=== PATIENT | male | born 1940 | race Caucasian/White ===

== ENCOUNTER 2016-11-25 16:43 | Emergency (ER) | payer MEDICARE, OTHER ==
[~2016-11-25] VITALS: Ht 182.9 cm; Wt 68.0 kg
[~2016-11-25 16:43] MED LIST: AMOX1TAB16 PO; ASPI325T PO; ATOR40TA64 PO; BISA10SU61 RECTALLY; CARB1TAB20 PO; CYAN250010 PO; DULO30CA52 PO; FURO-154 PO; HYDR-347 PO; INSU100V SQ; INSU200I4 SQ; IPRA3AMP AEROSOL; LEVO50TA11 PO; MAGN400O4 PO; OMEP20CA10 PO; POLY119P3 PO
[2016-11-25 16:44] VITALS: Ht 182.9 cm; Wt 68.0 kg
--- OUTSIDE RECORDS SUMMARY | 2016-11-25 16:48 | XMS REPORT | Continuity of Care Document ---
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 Equipment Service Lead Name Role Phone [employer] Unavailable Unavailable Problems Problem Status Onset Date Classification Date Reported Comments Source Chronic ischemic heart disease, unspecified 01/28/2015 Diagnosis 02/01/2015 [facility] Chest pain (finding) Active Problem 03/24/2015 [facility], [facility] Atherosclerosis of coronary artery (disorder) Active Problem 03/24/2015 [facility], [facility] Medications Medication Details Route Status Patient Instructions Ordering Provider Order Date Source No Known Medications No known medications Active [facility] Allergies, Adverse Reactions, Alerts Substance Category Reaction Severity Reaction type Status Date Reported Comments Source Primidone Assertion made patient "spacey" & depressed Propensity to adverse reactions to drug [facility], [facility]. topiramate Assertion "spacey " & depressed Propensity to adverse reactions to drug [facility], [facility]. Immunizations Immunization Date Given Site Status Last Updated Comments Source No data available for this section No data available for this section [facility], [facility]. Results Vital Signs Encounters Location Location Details Encounter Type Encounter Number Reason For Visit Attending Provider ADM Date DC Date Status Source [facility] [id number] Inpatient [id number] Eduardo Freedman 01/26/2015 01/28/2015 Active [facility] Cancel/ No Show [id number] . [facility] 01/28/2015 01/27/2015 [facility] [id number] Arnoldo Almonteel 04/01/2015 [facility] Procedures Procedure Code Date Perfomer Comments Source LV cors c PTCA 01/27/2015 [facility] No data available for this section [facility] bilat cataracts [facility] [facility], [employer]. microdiscectomy<sup>1</sup> 2012 [facility]. prostate scraping<sup>2</sup> 2012 [facility]. vasectomy [facility]. vitrectomy-eye surgery-left [facility]. Plan of Care Social History Assessment and Plan Family History Value Date Source Advance Directives Order Name Results Value Date Source
--- OUTSIDE RECORDS SUMMARY | 2016-11-25 16:48 | XMS REPORT | Continuity of Care Document ---
Author Author [facility] Organization [facility] Address Unknown Phone Unavailable Care Team Providers Care Ip Counsel Name Role Phone Sherif Sharpe Primary Care Physician [phone] Source Comments Some departments are not documenting in the electronic medical record. If you do not see the information that you expected, contact Release of Information in the Health Information Management department at [phone] for further assistance in locating additional records.[facility] Active Allergies and Adverse Reactions Allergen Noted Date Severity Reactions Comments Bactrim 10/22/2015 Low SEE COMMENTS Potassium levels went to (8.4) Primidone 10/22/2015 Medium MENTAL STATUS CHANGES Sulfa (Sulfonamide 10/22/2015 Low UNKNOWN Antibiotics) Topiramate 10/22/2015 Medium MENTAL STATUS CHANGES Current Medications Prescription Sig. Disp. Refills Start End Date Status Date aspirin EC 81 mg tablet Take 81 mg by mouth Active daily. atorvastatin (LIPITOR) 40 Take 40 mg by mouth at Active mg tablet bedtime daily. carbidopa/levodopa Take 1.5 Tabs by mouth Active (SINEMET) 25/100 mg four times daily. Takes 2 tablet tabs three times a day levothyroxine (SYNTHROID) Take 50 mcg by mouth Active 50 mcg tablet daily 30 minutes before breakfast. omeprazole DR(+) Take 20 mg by mouth Active (PRILOSEC) 20 mg capsule daily. INSULIN Inject 35 Units into Active GLARGINE,HUM.REC.ANLOG area(s) as directed at (LANTUS SC) bedtime daily. docusate (COLACE) 100 mg Take 100 mg by mouth Active capsule daily. CALCIUM POLYCARBOPHIL Take 1 Tab by mouth Active (FIBERCON PO) daily. ASCORBATE CALCIUM Take 500 mg by mouth Active (VITAMIN C PO) daily. cholecalciferol(+) Take 2,000 Units by mouth Active (VITAMIN D3) 2,000 unit daily. tablet clobetasol (TEMOVATE) Apply to affected area Active 0.05 % topical cream as Needed (psoriasis). Melatonin 5 mg cap Take 1-2 Caps by mouth at Active bedtime as needed. Cyanocobalamin 2,[address] 1 Tab under tongue Active subl four times weekly. fludrocortisone Take 0.1 mg by mouth Active (FLORINEF) 0.1 mg tablet every morning. Alpha Lipoic Acid 600 mg Take 1 Cap by mouth Active cap daily. VITAMIN B COMPLEX Take 1 Tab by mouth Active (BALANCED B-50 PO) daily. levocarnitine(+) 500 mg Take 1 Tab by mouth Active tablet daily. POMEGRANATE XT/POMEGRANAT Take 1 oz by mouth daily. Active SEED (POMEGRANATE PO) other medication Take 1 Dose by mouth Active daily. 1oz of 85% Dark Chocolate DULoxetine DR (CYMBALTA) Take 1 Cap by mouth twice 60 Cap 11 11/16/19 Active 30 mg capsule daily. Indications: 16 CHRONIC MUSCULOSKELETAL PAIN DOCOSAHEXANOIC ACID/EPA Take 1,200 mg by mouth Active (FISH OIL PO) daily. polyethylene glycol 3350 Take 17 g by mouth daily Active (GLYCOLAX; MIRALAX) 17 as needed. 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 Sepsis due to urinary tract infection (HCC) 01/25/2016 DM (diabetes mellitus) (HCC) 01/25/2016 Fall 01/25/2016 Parkinsonism (HCC) 11/16/2015 Peripheral neuropathy ([facility]) 11/16/2015 Orthostatic hypotension 11/16/2015 Most Recent Encounters Date Type Specialty Providers Description 11/23/2016 Telephone Neurology Yan Aceves MD Other - "zoning" 10/20/2016 Telephone Neurology Christian Hernandes MD Fall 10/05/2016 Telephone Neurology Yan Aceves MD Fall 09/20/2016 Telephone Neurology Yan Aceves MD Falls 08/31/2016 Telephone Neurology Yan Aceves MD Follow-up Phone Call 08/29/2016 Office Visit Neurology Yan Aceves MD Parkinsonism, unspecified Parkinsonism type (HCC) (Primary Dx); Peripheral polyneuropathy (HCC); Orthostatic hypotension; Constipation, unspecified constipation type Immunizations Name Dates Previously Given Next Due Tdap Vaccine 01/09/2016 Social History Tobacco Use Types Packs/Day Years Used Date Never Smoker Smokeless Tobacco: Never Used Alcohol Use Drinks/Week oz/Week Comments No 0 Standard 0.0 drinks or equivalent Last Filed Vital Signs Vital Sign Reading Time Taken Blood Pressure 119/64 08/29/2016 3:28 PM ROOF TECHNICIAN Pulse 80 08/29/2016 3:28 PM ROOF TECHNICIAN Temperature 36.4 C (97.6 F) 01/28/2016 3:05 PM CDT Respiratory Rate 12 01/09/2016 1:54 PM CDT Height 1.829 m (6') 08/29/2016 3:28 PM ROOF TECHNICIAN Weight 93.214 kg (205 lb 8 oz) 08/29/2016 3:28 PM ROOF TECHNICIAN Body Mass Index 27.86 08/29/2016 3:28 PM ROOF TECHNICIAN Oxygen Saturation 99% 01/28/2016 3:05 PM CDT Plan of Care Date Type Specialty Providers Description 12/20/2016 Appointment Neurology Yan Aceves MD [address] [place] [address] [phone] (Fax) Health Maintenance Due Date Last Done Comments Physical (Comprehensive) 1947 Exam Shingles Vaccine 1998 Prevnar/Pneumovax (#1) 2003 Influenza Vaccine 05/12/2017 Tetanus Vaccine 01/08/2026 01/09/2016 Pertussis Vaccine Completed 01/09/2016 Results from Last 3 Months Not on file
--- OUTSIDE RECORDS SUMMARY | 2016-11-25 16:49 | XMS REPORT | Continuity of Care Document ---
Author Author [facility] Organization [facility] Address Unknown Phone Unavailable Support Name Relationship Address Phone KVNG SOUZA MD Caregiver [address] [place] [address] Unavailable RADHA BUSBY MD Caregiver [address] [place] [address] Unavailable RADHA BUSBY MD Caregiver [address] [place] [address] Unavailable RK HOWELL Next Of Kin [address] [place], [place] [id number] Insurance Providers Guarantor Manoj Howell Address [address] [place] [address] Email [email or web address] Payer Medicare Policy Number [id number] Subscriber's Name Manoj Howell Relationship 18 Self Payer [employer] Policy Number [id number] Subscriber's Name Manoj Howell Relationship 18 Self Group Number [id number] Advance Directives Directive Response Recorded Date/Time Ordered Resuscitation Status Full Code 10/11/16 2:23pm Resuscitation Documents on File No 10/11/16 4:19pm DPOA for Healthcare Only Yes 10/11/16 4:19pm Living Will Yes 10/11/16 4:19pm Problems Active Problems Medical Problem Onset Date Status Acute renal failure Unknown Acute CAD (coronary artery disease) Unknown Chronic Chest pain Unknown Acute Closed subcapital fracture of right femur Unknown Conjunctivitis of left eye Unknown Acute Depression Unknown Chronic Diabetes mellitus type 1 Unknown Chronic 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 Fall Unknown Acute Fever Unknown Acute Fever Unknown GERD (gastroesophageal reflux disease) Unknown Chronic HTN (hypertension) Unknown Chronic History of hyperkalemia Unknown Resolved Hyperglycemia Unknown Acute Hyperkalemia Unknown Acute Hyperlipemia Unknown Chronic Hypothyroidism Unknown Chronic Hypoxia Unknown Ischemic heart disease due to coronary artery obstruction Unknown Acute Malaise Unknown Acute Minor head injury Unknown Acute Myalgia Unknown Acute NSTEMI (non-ST elevated myocardial infarction) Unknown Acute Osteopenia Unknown Chronic Parkinson disease Unknown Chronic Pneumonia Unknown Acute Scalp laceration Unknown Acute UTI (urinary tract infection) Unknown Acute Past Problems Medical Problem Onset Date Fracture of femoral neck, right, closed Unknown Hypertension Unknown Tachycardia Unknown Medications Current Home Medications Medication Dose Units Route Directions Days Qty Instructions Start Date Amox Tr/Potassium Clavulanate (Amox Tr-K Clv 875-125 Mg Tab) 875 Mg Tablet 875 Mg Oral Twice Daily With Meals 5 Days 10 Tablet 10/21/16 Aspirin 325 Mg Tablet 1 Tab Oral Twice A Day 30 Tablet 10/21/16 Aspirin 325 Mg Tablet 1 Tab Oral Twice A Day 30 Tablet 10/21/16 Atorvastatin Calcium 40 Mg Tablet 40 Mg Oral Bedtime 30 Days 30 Tablet 10/21/16 Bisacodyl (Dulcolax) 10 Mg Supp.rect 10 Mg Rectally As Needed as needed for Constipation 30 Tablet 10/21/16 Carbidopa/Levodopa (Carbidopa-Levodopa 25-100 Tab) 1 Each Tablet 1.5 Tab Oral Four Times Daily/Empty Stomach 180 Tablet 10/21/16 Cyanocobalamin (Vitamin B-12) (Vitamin B12) 2,500 Mcg Tablet 2,500 Mcg Oral 4 Times A Week 10/11/16 Duloxetine Hcl 30 Mg Capsule.dr 30 Mg Oral Twice A Day 60 Tablet Furosemide (Lasix) 20 Mg Tablet 1 Tab Oral Daily for Edema 30 Tablet 10/21/16 Hydrocodone/Acetaminophen (Rittman 7.5-325 Tablet) 7.5-325 Tablet 1-2 Tab Oral Every 4 Hours as needed for Pain 30 Tablet 10/21/16 Insulin Degludec (Tresiba Flextouch U-200) 200 Unit/1 Ml Insuln.pen 28 Unit Sub-Q Bedtime 1 Package 10/21/16 Insulin Lispro (Humalog) 100 Unit/Ml Inj 1 Unit Sub-Q Sliding Scale as needed for Prn Orders 10/11/16 Insulin Lispro (Humalog) 100 Unit/Ml Inj 9 Unit Sub-Q Give With Lunch 10/11/16 Insulin Lispro (Humalog) 100 Unit/Ml Inj 14 Unit Sub-Q Give With Supper 10/11/16 Insulin Lispro (Humalog) 100 Unit/Ml Inj 22 Unit Sub-Q Give With Breakfast 2 Package 22 u with breakfast 9 u with lunch 14 u with supper. 10/21/16 Ipratropium/Albuterol Sulfate (Iprat-Albut 0.5-3(2.5) Mg/3 Ml) 3 Ml Ampul.neb 1 Vial Aerosol Tx. Four Times Daily for Shortness Of Air/Wheezing 30 Amp 10/21/16 Levothyroxine Sodium 50 Mcg Tablet 50 Mcg Oral Before Breakfast 30 Tablet 10/21/16 Magnesium Hydroxide (Milk Of Magnesia) 400 Mg/5 Ml Oral.susp 30 Mg Oral Daily as needed for Constipation 10/11/16 Omeprazole 20 Mg Capsule. 20 Mg Oral Before Breakfast 30 Tablet 10/21/16 Polyethylene Glycol 3350 (Miralax) 119 Gm Powder 17 G Oral Daily 1 Bottle 10/21/16 Past Home Medications Medication Directions Ordered Status Acetaminophen 650 Mg Supp.rect, 650 Mg Rectally Every 4 Hours as needed for Pain/Fever 10/11/16 Discontinued Amlodipine Besylate/Benazepril (Lotrel 2.5/10 Mg Capsule) 1 Udcap Capsule, 1 Udcap Oral Bedtime 04/06/10 Discontinued Ascorbic Acid (Vitamin C) 500 Mg Capsule.sa, 500 Mg Oral 03/10/09 Discontinued Aspirin (Ecotrin) 81 Mg Tablet., 81 Mg Oral Daily 10/11/16 Discontinued Aspirin 325 Mg Tablet, 1 Tab Oral Daily 04/06/10 Discontinued Aspirin (Aspir 81) 81 Mg Tablet., 81 Mg Oral Daily 04/05/10 Discontinued Aspirin 325 Mg Tablet, 325 Mg Oral Daily 04/05/10 Discontinued Atorvastatin Calcium 40 Mg Tablet, 40 Mg Oral Bedtime 10/11/16 Discontinued Atorvastatin Calcium 40 Mg Tablet, 1 Tab Oral Bedtime 03/26/15 Discontinued B12 , Oral Daily 03/10/09 Discontinued Bisacodyl (Dulcolax) 10 Mg Supp.rect, 10 Mg Rectally As Needed as needed for Constipation 10/11/16 Discontinued Carbidopa/Levodopa (Carbidopa-Levodopa 25-100 Tab) 1 Each Tablet, 1.5 Tab Oral Four Times Daily/Empty Stomach 10/11/16 Discontinued Cefazolin Sodium 1 Gm Vial, 1 Gm Intraven Every 8 Hours 10/11/16 Discontinued Cefdinir 300 Mg Capsule, 300 Mg Oral Twice A Day 10/07/16 Discontinued Cephalexin (Keflex) 500 Mg Capsule, 500 Mg Oral Three Times A Day 05/31/15 Discontinued Clobetasol Propionate/Emoll (Clobetasol Emollient 0.05% Crm) 15 Gm Cream..g., 1 Applic Topically As Needed 11/05/15 Discontinued Duloxetine Hcl 30 Mg Capsule.dr, 30 Mg Oral Twice A Day 10/11/16 Discontinued Enoxaparin Sodium 40 Mg/0.4 Ml Syringe, 40 Mg Sub-Q Daily 10/11/16 Discontinued Esomeprazole Mag Trihydrate (Nexium) 40 Mg Capsule.dr, 40 Mg Oral Daily 04/06 Discontinued Fludrocortisone Acetate 0.1 Mg Tablet, 0.1 Mg Oral Daily 11/05/15 Discontinued Furosemide 10 Mg/1 Ml Vial, 20 Mg Intraven Twice A Day 10/11/16 Discontinued Hydrocodone/Acetaminophen (Rittman 7.5-325 Tablet) 7.5-325 Tablet, 1-2 Tab Oral Every 4 Hours as needed for Pain 10/11/16 Discontinued Hydromorphone Hcl 1 Mg/1 Ml Liquid, 0.5 Mg Intraven Every 2 Hours as needed for Pain 10/11/16 Discontinued Ibuprofen 400 Mg Tablet, 400 Mg Oral Every 4-6 Hours as needed for Pain 10/11 Discontinued Insulin Degludec (Tresiba Flextouch U-200) 200 Unit/1 Ml Insuln.pen, 28 Unit Sub-Q Bedtime 10/13/16 Discontinued Insulin Glargine (Lantus) 100 U/Ml Vial, 20 U Sub-Q Daily 04/06/10 Discontinued Insulin Lispro (Humalog) 100 Unit/Ml Inj, 22 Unit Sub-Q Give With Breakfast 10/11/16 Discontinued Ipratropium/Albuterol Sulfate (Iprat-Albut 0.5-3(2.5) Mg/3 Ml) 3 Ml Ampul.neb, 1 Vial Aerosol Tx. Four Times Daily 10/11/16 Discontinued Labetalol Hcl 20 Mg/4 Ml Syringe, 10 Mg Intraven Every 4 Hours as needed for Hypertension 10/11/16 Discontinued Lecithin 518 Mg Capsule, 400 Mg Oral 10/11/11 Discontinued Lecithin 400 Mg Capsule, 400 Mg Oral Daily 03/10/09 Discontinued Lecithin, Soy (Lecithin) 400 Mg Capsule, Daily 05/31/15 Discontinued Lecithin, Soy (Lecithin) 400 Mg Capsule, 1 Cap Oral Daily 02/18/15 Discontinued Levothyroxine Sodium 50 Mcg Tablet, 50 Mcg Oral Before Breakfast 10/11/16 Discontinued Lisinopril 2.5 Mg Tablet, 2.5 Mg Oral Daily 03/10/09 Discontinued Normal Saline (Sodium Chloride) 50 Ml Iv.soln., 500 Ml Intraven As Needed Discontinued Nozin Nasal Swab , 1 Each Nasal Every 8 Hours 10/11/16 Discontinued Omeprazole 20 Mg Capsule.dr, 20 Mg Oral Before Breakfast 10/11/16 Discontinued Ondansetron Hcl 4 Mg/5 Ml Solution, 4 Mg Intraven Every 6 Hours as needed for Nausea &/Or Vomiting 10/11/16 Discontinued Polyethylene Glycol 3350 (Miralax) 119 Gm Powder, 17 G Oral Daily 10/11/16 Discontinued Sodium Polystyrene Sulfonate (Kayexalate) 453.6 Gm Powder, Unknown Dose Oral Twice A Day 03/26/15 Discontinued Tamsulosin Hcl (Flomax) 0.4 Mg Cap.sr.24h, 0.4 Mg Oral Q 3 Days 10/11/11 Discontinued Vitamin E 400 Unit Capsule, 400 Unit Oral Daily 04/05/10 Discontinued Social History Social History Problem Response Recorded Date/Time Onset Date Status Reason for Hospitalization Right hip fracture 10/21/2016 2:12pm Not Applicable Not Applicable Chewing Tobacco Status No 06/10/2013 1:18pm Not Applicable Not Applicable Hx Substance Use No 10/07/2016 2:16am Not Applicable Not Applicable Hx Alcohol Use No 10/07/2016 2:16am Not Applicable Not Applicable Has the pt used tobacco in the last 12 months No 10/11/2016 2:33pm Not Applicable Not Applicable Tobacco Usage none 03/26/2015 12:39pm Not Applicable Not Applicable Query Response Start Date Stop Date Smoking Status Never smoker Hospital Discharge Instructions Instructions: Care Instructions: Reason for Hospitalization: Right hip fracture I was in the hospital because (patient own words): i fell down on my right hip Discharge Diet: ADA diet 2000Carb Discharge Activity: Activity as tolerated with walker Follow Up Appointments: Dr. Souza on 11/07/16 at 10:15am for follow up. [phone]. Dr. Gale on 11/08/16 at 9:30am for follow up. [phone] Pending Lab / Results: No Pending Lab Patient Instructions: Take [id number] PO BID until November 20 for Post-op Anticoagulation Wound/Incision Care: keep wound dressing intact until follow up Durable Medical Equipment: walker Pain Scale Utilized to Educate Patient: 0-10 Pain Scale Pain Management/Treatment: Rittman as needed for pain control Expected Signs/Symptoms: Continued improvement in post-op strength Notify Physician If: fever,chills, increased pain to right hip. other concerning symptoms During Business Hours:: Please call the physician's office After Business Hours:: Please call [phone] and have the roto mixer operator page the physician. Condition at time of discharge: Fair Plan of Care Discharge Date 10/21/16 3:50pm Disposition 01 DISCHARGED HOME, SELF-CARE Instructions/Education Provided Hip Fracture (GEN) Prescriptions See Medication Section Additional Instructions/Education Outpatient physicial therapy to be started next monday. Please call and schedule appointment. Care Plan and Goals See Discharge Instructions Section Functional Status Query Response Date Recorded Mobility Status Ambulatory w/assist October 21, 2016 2:12pm Assistive Devices Front Wheeled Walker October 21, 2016 2:12pm Activity Limitations Weakness Pain October 21, 2016 2:12pm Feeding Ability Independent October 21, 2016 2:12pm Toileting Ability Assist October 21, 2016 2:12pm Grooming Ability Assist October 21, 2016 2:12pm Dressing Ability Assist October 21, 2016 2:12pm Driving Ability Dependent October 21, 2016 2:12pm Housework Ability Assist October 21, 2016 2:12pm Meal Preparation Ability Assist October 21, 2016 2:12pm Stair Climbing Ability Assist October 21, 2016 2:12pm Ability to complete ADL's impeded by Impaired Mobility October 21, 2016 2:12pm Cognitive/Perceptual Impairments None October 21, 2016 2:12pm Preferred Method of Learning Demonstration Listening October 20, 2016 12:15pm Allergies, Adverse Reactions, Alerts Allergen Type Severity Reaction Status Last Updated Primidone Allergy Unknown Active 10/07/16 Sulfamethoxazole Allergy Unknown CRITICALLY HIGH POTASSIUM Active 10/07/16 Trimethoprim Allergy Unknown CRITICALLY HIGH POTASSIUM Active 10/07/16 Topiramate Allergy Unknown Active 10/07/16 Immunizations Query Response on File Recorded Date/Time Hx Influenza Vaccination Y 06/201610/11/16 2:33pm Hx Pneumococcal Vaccination Y 02/23, 07/2610/11/16 2:33pm Hx Influenza Vaccination Y 06/201610/11/16 2:33pm Influenza Vaccine Hx 07/04/17 10/11/16 2:25pm Tdap Vaccine Hx 01/09/16 10/07/16 2:18am Vital Signs Acute Vital Signs Vital Response Date/Time Temperature (Fahrenheit) 96.8 deg F (96.8 - 99.1) 10/21/2016 8:00am Temperature (Calculated Celsius) 36.83128 degrees C (36.0 - 37.3) 10/21/2016 8:00am Temperature Source Oral 10/11/2016 9:39am Pulse Rate (adult) 75 bpm (60 - 100) 10/21/2016 8:00am Respiratory Rate 20 breaths/min (10 - 20) 10/21/2016 8:00am O2 Sat by Pulse Oximetry 94 % (90 - 100) 10/21/2016 8:00am Oxygen Delivery Method Nasal Cannula 10/16/2016 10:47pm Oxygen Delivery Method Room Air 10/21/2016 8:00am Oxygen Flow Rate 1.00 L/min 10/20/2016 1:59am Fraction of Inspired Oxygen (FIO2) 27 % 10/20/2016 1:59am Blood Pressure 154/72 mm Hg 10/21/2016 8:00am Blood Pressure Source Automatic Cuff 10/21/2016 8:00am Height (Feet) 5 feet 10/21/2016 2:30pm Height (Inches) 11.00 inches 10/21/2016 2:30pm Weight (Kilograms) 96.000 kg 10/18/2016 12:15pm Body Mass Index (BMI) 30.8 10/11/2016 2:32pm Results Laboratory Results Test Name Result Units Flags Reference Collection Date/Time Result Date/ Time Comments Unconjugated Bilirubin 0.30 MG/DL 0.00-1.10 08/08/2016 10:30am 2015 10:52am Conjugated Bilirubin 0.00 MG/DL 0.00-0.30 08/08/2016 10:30am 2015 10:52am Cholesterol Level 115 MG/DL L 132-199 08/08/2016 10:30am 08/09/2016 12: 47am Triglycerides Level 55 MG/DL 40-160 08/08/2016 10:30am 08/09/2016 12: 47am HDL Cholesterol Direct 41 MG/DL 40-60 08/08/2016 10:30am 08/09/2016 12: 47am LDL Cholesterol, Calculated 63.0 L 66-159 08/08/2016 10:30am 2015 12:47am VLDL Cholesterol 11.0 MG/DL 0-28 08/08/2016 10:30am 08/09/2016 12:47am Cholesterol/HDL Ratio 2.8 RATIO 0-5.0 08/08/2016 10:30am 08/09/2016 12: 47am Phosphorus Level 4.3 MG/DL 2.5-4.5 08/18/2016 3:12pm 08/18/2016 3:28pm Magnesium Level 2.2 MG/DL 1.6-2.3 08/18/2016 3:12pm 08/18/2016 3:28pm Uric Acid 4.7 MG/DL 3.5-8.5 08/18/2016 3:12pm 08/18/2016 3:28pm Parathyroid Hormone (Intact) 47.4 PG/ML 12.1-64.0 08/18/2016 3:12pm 04/2016 4:36pm Urine Hyaline Casts 0-1 /LPF 10/05/2016 1:24pm 10/05/2016 1:34pm Neutrophils % (Manual) 63.0 % 33-66 10/11/2016 3:54am 10/11/2016 5: 47am Band Neutrophils % 4.0 % 0-6 10/08/2016 4:26am 10/08/2016 6:28am Lymphocytes % (Manual) 16.0 % L 23-45 10/11/2016 3:54am 10/11/2016 5: 47am Monocytes % (Manual) 5.0 % 0-9.0 10/11/2016 3:54am 10/11/2016 5:47am Eosinophils % (Manual) 16.0 % H 0-4 10/11/2016 3:54am 10/11/2016 5:47am Band Neutrophils # 0.3 T/MM3 10/08/2016 4:26am 10/08/2016 6:28am Absolute Neutrophils (Manual) 4.6 T/MM3 1.8-7.7 10/11/2016 3:54am 10/11 5:47am Lymphocytes # (Manual) 1.2 T/MM3 1-4.8 10/11/2016 3:54am 10/11/2016 5: 47am Monocytes # (Manual) 0.4 T/MM3 0-0.8 10/11/2016 3:54am 10/11/2016 5: 47am Eosinophils # (Manual) 1.2 T/MM3 H 0-0.5 10/11/2016 3:54am 10/11/2016 5: 47am Red Cell Morphology Comment NORMAL 10/11/2016 3:54am 10/11/2016 5: 47am Prothromb Time International Ratio 1.28 H 0.76-1.04 10/07/2016 7:46am 10/07/2016 8:10am THERAPUTIC RANGE=2.00-3.00 FOR ANTI-THROMBOSIS THERAPUTIC RANGE=2.50-3.50 FOR IMPLANTED VALVE Activated Partial Thromboplast Time 31.8 SEC 24-36 10/07/2016 7:46am 8:10am Total Bilirubin 0.50 MG/DL 0.20-1.30 10/11/2016 3:54am 10/11/2016 5: 12am Alkaline Phosphatase 97 U/L 38-126 10/11/2016 3:54am 10/11/2016 5:12am Total Protein 5.6 G/DL L 6.3-8.2 10/11/2016 3:54am 10/11/2016 5:12am Albumin 2.7 G/DL L 3.5-5.0 10/11/2016 3:54am 10/11/2016 5:12am Globulin 2.9 G/DL 2.4-3.6 10/11/2016 3:54am 10/11/2016 5:12am Albumin/Globulin Ratio 0.9 RATIO L 1.1-2.2 10/11/2016 3:54am 10/11/2016 5:12am Aspartate Amino Transf (AST/SGOT) 48 U/L 17-59 10/11/2016 3:54am 2016 5:12am Alanine Aminotransferase (ALT/SGPT) 21 U/L 21-72 10/11/2016 3:54am 5:12am EZ-Rrb-X-Type Natriuretic Peptide 9210 PG/ML H 0-175 10/09/2016 11:29am 10/09/2016 12:18pm Rule in cut points: <50 years old=450; 50-75 years old=900; >75 years old=1800; When utilizing ProBNP rule-in cut points, adjustment for impaired renal function is typically not required. Plasma Lactate 1.9 MMOL/L 0.6-2.2 10/07/2016 1:36am 10/07/2016 1:48am Procalcitonin 0.50 NG/ML 10/09/2016 11:29am 10/09/2016 12:25pm PCT < /=0.5 ng/mL - sepsis not likely; PCT >0.5 and </=2 ng/mL - sepsis possible; PCT >2 ng/mL - sepsis likely; PCT >/=10 ng/mL - systemic inflammatory response - sepsis or septic shock highly indicated. Adenovirus (PCR) NEGATIVE NEGATIVE 10/07/2016 9:15am 10/07/2016 10: 35am Coronavirus Type 229E (PCR) NEGATIVE NEGATIVE 10/07/2016 9:15am 10/07 10:35am Coronavirus Type HKU1 (PCR) NEGATIVE NEGATIVE 10/07/2016 9:15am 10/07 10:35am Coronavirus Type NL63 (PCR) NEGATIVE NEGATIVE 10/07/2016 9:15am 10/07 10:35am Coronavirus Type OC43 (PCR) NEGATIVE NEGATIVE 10/07/2016 9:15am 10/07 10:35am Human Metapneumovirus (PCR) NEGATIVE NEGATIVE 10/07/2016 9:15am 10/07 10:35am Enterovirus/Rhinovirus (PCR) NEGATIVE NEGATIVE 10/07/2016 9:15am 10:35am Influenza Virus Type A (PCR) NEGATIVE NEGATIVE 10/07/2016 9:15am 10:35am Influenza Virus Type B (PCR) NEGATIVE NEGATIVE 10/07/2016 9:15am 10:35am Parainfluenza Type 1 (PCR) NEGATIVE NEGATIVE 10/07/2016 9:15am 2016 10:35am Parainfluenza Type 2 (PCR) NEGATIVE NEGATIVE 10/07/2016 9:15am 2016 10:35am Parainfluenza Type 3 (PCR) NEGATIVE NEGATIVE 10/07/2016 9:15am 2016 10:35am Parainfluenza Type 4 (PCR) NEGATIVE NEGATIVE 10/07/2016 9:15am 2016 10:35am Respiratory Syncytial Virus (PCR) NEGATIVE NEGATIVE 10/07/2016 9:15am 10/07/2016 10:35am Bordetella parapertussis DNA (PCR) NEGATIVE NEGATIVE 10/07/2016 9: 15am 10/07/2016 10:35am Chlamydia pneumoniae DNA (PCR) NEGATIVE NEGATIVE 10/07/2016 9:15am 10:35am Mycoplasma pneumoniae (PCR) NEGATIVE NEGATIVE 10/07/2016 9:15am 10/07 10:35am Urine Mucus PRESENT 10/09/2016 11:35am 10/09/2016 12:25pm Urine Fine Granular Casts 1-3 /LPF 10/09/2016 11:35am 10/09/2016 12: 25pm 25-Hydroxy Vitamin D3 36 ng/mL 10/07/2016 7:46am 10/11/2016 9:29am 25-Hydroxy Vitamin D2 <7 ng/mL 10/07/2016 7:46am 10/11/2016 9:29am 25-Hydroxy Vitamin D Total 36 ng/mL 30-74 10/07/2016 7:46am 10/11/2016 9:29am The desirable level of 25-Hydroxy Vitamin D Total(D2 + D3) is 30-74 ng/ mL. A level consistently >200 is potentially toxic. Vitamin D, 25-Hydroxy performed at [facility] Reference Lab, [address] [place] [address] Nursing Assistants Teacher Leoncio Butler DO White Blood Count 7.7 T/MM3 4.5-11.0 10/12/2016 4:35am 10/12/2016 5: 24am Red Blood Count 3.15 M/MM3 L 4.50-5.90 10/12/2016 4:35am 10/12/2016 5: 24am Hemoglobin 9.9 GM/DL L 13.5-17.5 10/12/2016 4:35am 10/12/2016 5:24am Hematocrit 30.4 % L 41-53 10/12/2016 4:35am 10/12/2016 5:24am Mean Corpuscular Volume 96.5 UM3 80-100 10/12/2016 4:35am 10/12/2016 5: 24am Mean Corpuscular Hemoglobin 31.4 UUG 26-34 10/12/2016 4:352016 5:24am Mean Corpuscular Hemoglobin Concent 32.6 GM/DL 31-37 10/12/2016 4:3510/12/2016 5:24am RDW Standard Deviation 39.8 FL 36.9-50.2 10/12/2016 4:3510/12/2016 5 :24am Platelet Count 276 T/MM3 130-400 10/12/2016 4:3510/12/2016 5:24am Mean Platelet Volume 10.1 UM3 9.4-12.4 10/12/2016 4:3510/12/2016 5: 24am Neutrophils (%) (Auto) 66.1 % H 33-66 10/12/2016 4:3510/12/2016 5: 24am Lymphocytes (%) (Auto) 17.3 % L 23-45 10/12/2016 4:35am 10/12/2016 5: 24am Monocytes (%) (Auto) 10.2 % H 0-9.0 10/12/2016 4:3510/12/2016 5:24am Eosinophils (%) (Auto) 5.9 % H 0-4 10/12/2016 4:35am 10/12/2016 5:24am Basophils (%) (Auto) 0.4 % 0-2 10/12/2016 4:3510/12/2016 5:24am Immature Granulocyte % (Auto) 0.1 % 0.0-0.5 10/12/2016 4:352016 5:24am Absolute Neutrophils (auto) 5.1 T/MM3 1.8-7.7 10/12/2016 4:35am 2016 5:24am Absolute Lymphocytes (auto) 1.3 T/MM3 1-4.8 10/12/2016 4:35am 2016 5:24am Absolute Monocytes (auto) 0.8 T/MM3 0-0.8 10/12/2016 4:3510/12/2016 5:24am Absolute Eosinophils (auto) 0.5 T/MM3 0-0.5 10/12/2016 4:35am 2016 5:24am Absolute Basophils (auto) 0.0 T/MM3 0-0.2 10/12/2016 4:35am 10/12/2016 5:24am Absolute Immature Granulocyte (auto 0.01 T/MM3 0.00-0.03 10/12/2016 4: 35am 10/12/2016 5:24am Icterus Index < 2 0-7 10/12/2016 4:35am 10/12/2016 5:42am Chemistry Specimen Hemolysis < 15 0-25 10/12/2016 4:35am 10/12/2016 5 :42am 0-25: Specimen Exhibited No Hemolysis. Turbidity < 20 0-20 10/12/2016 4:35am 10/12/2016 5:42am Sodium Level 137 MEQ/L 134-144 10/12/2016 4:35am 10/12/2016 5:42am Potassium Level 3.9 MEQ/L 3.6-5 10/12/2016 4:35am 10/12/2016 5:42am Chloride Level 100 MEQ/L 98-107 10/12/2016 4:35am 10/12/2016 5:42am Carbon Dioxide Level 28 MEQ/L 22-30 10/12/2016 4:35am 10/12/2016 5: 42am Anion Gap 9 MEQ/L 5-15 10/12/2016 4:35am 10/12/2016 5:42am Blood Urea Nitrogen 25.0 MG/DL H 9-20 10/12/2016 4:35am 10/12/2016 5: 42am Creatinine 1.0 MG/DL 0.8-1.5 10/12/2016 4:35am 10/12/2016 5:42am BUN/Creatinine Ratio 25 RATIO 6-26 10/12/2016 4:35am 10/12/2016 5:42am Glomerular Filtration Rate Calc 72 10/12/2016 4:35am 10/12/2016 5: 42am Glucose Level 168 MG/DL H 75-110 10/12/2016 4:35am 10/12/2016 5:42am Calculated Osmolality 272 MOSM/KG 261-280 10/12/2016 4:35am 10/12/2016 5:42am Calcium Level 8.5 MG/DL 8.4-10.2 10/12/2016 4:35am 10/12/2016 5:42am Urine Collection Type CLEANCATCH-MIDSTREAM 10/16/2016 8:11am 2016 8:23am Urine Color YELLOW YELLOW 10/16/2016 8:11am 10/16/2016 8:23am Urine Turbidity CLEAR CLEAR 10/16/2016 8:11a10/16/2016 8:23am Urine Specific [place] 1.010 L 1.015-1.025 10/16/2016 8:11am 2016 8:23am Urine pH 6.5 5.0-8.0 10/16/2016 8:11am 10/16/2016 8:23am Urine Leukocyte Esterase 3+ A NEGATIVE 10/16/2016 8:11a10/16/2016 8: 23am Urine Nitrite NEGATIVE NEGATIVE 10/16/2016 8:11a10/16/2016 8:23am Urine Protein TRACE A NEGATIVE 10/16/2016 8:11a10/16/2016 8:23am Urine Glucose (UA) NEGATIVE NEGATIVE 10/16/2016 8:11am 10/16/2016 8: 23am Urine Ketones NEGATIVE NEGATIVE 10/16/2016 8:11am 10/16/2016 8:23am Urine Urobilinogen 0.2 EU/DL NORMAL 10/16/2016 8:11am 10/16/2016 8: 23am Urine Bilirubin NEGATIVE NEGATIVE 10/16/2016 8:11a10/16/2016 8: 23am Urine Blood 1+ A NEGATIVE 10/16/2016 8:11a10/16/2016 8:23am Urine WBC TNTC /HPF H 0-5 10/16/2016 8:11am 10/16/2016 8:37am Urine WBC Clumps MANY H 10/16/2016 8:11am 10/16/2016 8:37am Urine RBC 1-3 /HPF 0-3 10/16/2016 8:11am 10/16/2016 8:37am Urine Squamous Epithelial Cells NONE SEEN 10/16/2016 8:11a2016 8:37am Urine Bacteria 4+ H NEGATIVE 10/16/2016 8:11a10/16/2016 8:37am Urine Culture Indicated CULT REFLEXED &SETUP 10/16/2016 8:11am 01/2017 8:37am Urinalysis Comment MICROSCOPIC NOT IND. 10/12/2016 12:24pm 2016 12:32pm Glucometer 201 mg/dL H 75-110 10/21/2016 2:54pm 10/21/2016 2:56pm Microbiology Results Procedure Source Organism/Result Collection Date/Time Result Date/Time Result Status Blood Culture Peripheral/Iv Start NO GROWTH AFTER 5 DAYS 10/09/2016 11: 29am 10/14/2016 11:50am Final Urine Culture Urine, Clean Catch-Midstream ESCHERICHIA COLI 10/16/2016 8: 37am 10/18/2016 6:46am Final Procedures Procedure Status Date Provider(s) Routine venipuncture Completed 08/08/16 Lipid panel Completed 08/08/16 Hepatic function panel Completed 08/08/16 Routine venipuncture Completed 08/12/16 Metabolic panel total ca Completed 08/12/16 Urinalysis auto w/scope Completed 08/12/16 Complete cbc w/auto diff wbc Completed 08/12/16 Urine culture/colony count Completed 08/12/16 Urine bacteria culture Completed 08/12/16 Microbe susceptible ana luisa Completed 08/12/16 Routine venipuncture Completed 08/18/16 Renal function panel Completed 08/18/16 Vitamin d 25 hydroxy Completed 08/18/16 Assay of magnesium Completed 08/18/16 Assay of parathormone Completed 08/18/16 Assay of blood/uric acid Completed 08/18/16 Complete cbc w/auto diff wbc Completed 08/18/16 Emergency dept visit Completed 08/26/16 Urinalysis auto w/scope Completed 10/05/16 Culture aerobic identify Completed 10/05/16 Urine culture/colony count Completed 10/05/16 Microbe susceptible ana luisa Completed 10/05/16 Treat thigh fracture Completed 10/07/16 ABBEY GALE MD REPLACE OF R HIP JT, FEMORAL WITH SYNTH SUB, OPEN APPROACH Completed ABBEY GALE MD Encounters Encounter Location Arrival/Admit Date Discharge/Depart Date Attending Provider Discharged Inpatient [facility] 10/11/16 12:14pm 10/21/16 3:50pm RADHA BUSBY MD Discharged Inpatient [facility] 10/07/16 2:32am 10/11/16 1:06pm KVNG SOUZA MD [facility] 10/05/16 12:37pm RENETTA FERRER Departed Emergency Room [facility] 08/26/16 6:13pm 08/26/16 7: 44pm CK PABLO MD [facility] 08/18/16 2:54pm AUGIE MARTINEZ MD Registered Clinic [facility] 08/12/16 7:56pm SHERRY WRIGHT MD Registered Clinic [facility] 08/08/16 10:15am RADHA LANDRY MD
[2016-11-25] MEDS ORDERED: ASPI-557 PO (17:21)
[2016-11-25] MEDS ORDERED: DULO60CA56 PO (17:24)
[2016-11-25] MEDS ORDERED: ATOR40TA64 PO (17:24)
[2016-11-25] MEDS ORDERED: CARB1TAB20 PO (17:24)
[2016-11-25] MEDS ORDERED: FLUD0.1T PO (17:26)
[2016-11-25] MEDS ORDERED: LEVO50TA11 PO ×2 (17:26→17:29)
[2016-11-25] MEDS ORDERED: MIDO5TAB PO (17:29)
[2016-11-25] MEDS ORDERED: OMEP20CA10 PO (17:29)
[2016-11-25] MEDS ORDERED: INSU100V SQ (17:32)
[2016-11-25] MEDS ORDERED: INSU200I4 SQ (17:32)
[2016-11-25] MEDS ORDERED: DOCU-168 PO (17:34)
[2016-11-25] MEDS ORDERED: CALC1CAP22 PO (17:34)
[2016-11-25] MEDS ORDERED: [UNRECOGNIZED DRUG - CODE] PO (17:37)
[2016-11-25] MEDS ORDERED: CALC625T PO (17:37)
[2016-11-25] MEDS ORDERED: ALPH600C7 PO (17:37)
[2016-11-25] MEDS ORDERED: UBID100C10 PO (17:41)
[2016-11-25] MEDS ORDERED: MAGNESIUM THREONATE PO (17:45)
[2016-11-25] MEDS ORDERED: [UNRECOGNIZED DRUG - CODE] PO (17:45)
[2016-11-25] MEDS ORDERED: CYAN25002 PO (17:45)
[2016-11-25] MEDS ORDERED: CRAN500T2 PO (17:45)
[2016-11-25] MEDS ORDERED: POLY119P3 PO (17:50)
[2016-11-25] MEDS ORDERED: MELA5TAB14 PO (17:50)
[2016-11-25] MEDS ORDERED: FISH1CAP59 PO (17:50)
[2016-11-25] MEDS ORDERED: ASCO500T10 PO (17:50)
--- NOTE | 2016-11-25 18:03 | NUR ---
PROVIDER DR YEH IN ROOM W/ PT.
--- NOTE | 2016-11-25 18:03 | ERPDOC ---
Departure Disposition Decision Date: Nov 25, 2016 Disposition Decision Time: 20:38 Disposition: 01 DISCHARGED HOME, SELF-CARE Impression Impression Impression: Primary Impression: Transient hypotension Severity: Moderate Condition: Stable Seen By: Physician only Referrals: KVNG SOUZA MD (Family) Follow-up on Monday morning as scheduled Patient Instructions: Dehydration (ED) Problems/Meds/Labs Reviewed?: Yes Medications reviewed and manag: Yes Follow up care ordered?: Yes Mental Status: Alert, Oriented HPI - General Medical General Stated Complaint: LOW BLOOD PRESSURE Time Seen by Provider: 18:03 Source: patient Exam Limitations: no limitations HPI - General Medical Initial Comments Patient is a 76-year-old male presents emergency room for evaluation episodes of hypotension. This is been going on for about a month, patient is not currently on any blood pressure medications. checks blood pressure several times a day patient has episodes of dizziness and blood pressure is in the 80s when checked, does rebound without interventions. 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 Patient had an episode approximately 1400 where he was feeling dizzy his blood pressure was 88/56, it was decided the patient needs to be evaluated acutely tonight in the ER for this 1 month problem. On arrival patient's blood pressure 145/78 no acute distress Occurred At: home Allergies: Coded Allergies: primidone (Verified Allergy, Unknown, 10/07/16) per H&P sulfamethoxazole (Verified Allergy, Unknown, CRITICALLY HIGH POTASSIUM, ) topiramate (Verified Allergy, Unknown, 10/07/16) per H&P trimethoprim (Verified Allergy, Unknown, CRITICALLY HIGH POTASSIUM, ) Past History Patient Surgical History CABG x 5. Past Medical History Metabolic: diabetes, hypercholesterolemia, hypertension ENMT: other Cardiac: CAD, GA, other GI: GERD Male: BPH Neurological: other Musculoskeletal: osteoarthritis Surgical History General: EGD, back, colonoscopy, tonsils Cardiac: cardiac bypass, cardiac cath Family History Family PMH: FOUND: GA, diabetes Vaccines Hx Influenza Vaccination: Yes (06/2016) Hx Pneumococcal Vaccination: Yes (02/23, 07/26) Social History Does patient use chewing tobac: No Second Hand Exposure: No Substance Use Type: does not use Alcohol Intake: none Marital Status: Sexuality: female partner Housing: apartment Household Members: spouse Review of Systems Constitutional Constitutional: DENIES: appetite decrease, chills, dizziness, fever, weakness Eyes Vision: DENIES: double vision, loss of visual villasenor ENMT Sinuses: DENIES: congestion, rhinorrhea Cardiovascular Cardiac: DENIES: chest pain, dyspnea on exertion Pulmonary Respiratory: DENIES: cough, dyspnea, sputum, tachypnea GI Upper Abdomen: DENIES: nausea, pain, vomiting Lower Abdomen: DENIES: constipation, diarrhea, pain General: DENIES: frequency, urgency Musculoskeletal General: DENIES: cramps, pain Integumentary Skin: DENIES: color change, itching, rash Neurological General: other Endocrine Endocrine: DENIES: heat/cold intolerance Hematologic/Lymphatic Hematologic/Lymphatic: DENIES: anemia Physical Exam General General Nourishment: well nourished, well developed General Body Habitus: well groomed Vitals and Pain Weight: Kilograms: Height (feet): 5 Height (inches): 11.00 Triage Pain Scale: RN VS reviewed by Provider: Yes Eyes (brief) Eyes Brief: found: EOMI ENMT (brief) ENMT Brief: FOUND: mucosa moist, normal dentition, NOT FOUND: nasal erythema, pharnyx erythema, tonsillar deviation Neck (brief) Neck: NOT FOUND: adenopathy, spasm, tenderness Respiratory (brief) Respiratory: FOUND: clear all villasenor, equal bilaterally, NOT FOUND: rales, wheezes Cardiovascular (brief) Cardiac: FOUND: regular rate, regular rhythm Capillary Refill: <2 sec Abdomen (brief) Abdominal Brief: FOUND: bowel normo active x4, soft, NOT FOUND: distended, tender Lymphatic (brief) Lymphatic Brief: NOT FOUND: adenopathy Musculoskeletal (brief) Musculoskeletal Brief: NOT FOUND: spasm, tenderness Integumentary (brief) Integumentary Brief: FOUND: dry, pink, warm, NOT FOUND: rash Neurologic (brief) Neurological Brief: FOUND: CN w/o gross def to obs, motor-no gross deficits, sensory-no gross deficits Psychiatric (brief) Psychiatric Brief: FOUND: alert, oriented Differential Diagnoses Considering: Acute GA, CVA, Hypo/Hyperglycemia, Hypo/Hyperkalemia, Hypo/ Hypernatremia, Intracranial Hemorrhage, Medication Effect, Metabolic, Pneumonia , TIA, UTI Progress Results/Orders Orders Procedure Category Date Status Time Iv Lock (Ed Only) EDM 11/25/16 Transmitted 18:12 Cbc W/Auto LAB 11/25/16 Complete Diff-Reflex Manual 18:15 Cmp - Comprehensive LAB 11/25/16 Complete Metabolic 18:15 Troponin I W LAB 11/25/16 Complete Hemolysis Index 18:15 EKG EKG 11/25/16 Logged 18:15 Ct Head W/O Contrast CT 11/25/16 Taken 18:15 Normal Saline (Normal PHA 11/25/16 Complete Saline Iv) 18:15 Lab Results Laboratory Tests Test 11/25/16 18:33 White Blood Count 6.8T/MM3 Red Blood Count 3.88M/MM3 Hemoglobin 12.1GM/DL Hematocrit 36.9% Mean Corpuscular Volume 95.1UM3 Mean Corpuscular Hemoglobin 31.2UUG Mean Corpuscular Hemoglobin Concent 32.8GM/DL RDW Standard Deviation 41.7FL Platelet Count 225T/MM3 Mean Platelet Volume 9.8UM3 Immature Granulocyte % (Auto) 0.1% Neutrophils (%) (Auto) 51.2% Lymphocytes (%) (Auto) 36.9% Monocytes (%) (Auto) 7.4% Eosinophils (%) (Auto) 4.0% Basophils (%) (Auto) 0.4% Absolute Immature Granulocyte (auto 0.01T/MM3 Absolute Neutrophils (auto) 3.5T/MM3 Absolute Lymphocytes (auto) 2.5T/MM3 Absolute Monocytes (auto) 0.5T/MM3 Absolute Eosinophils (auto) 0.3T/MM3 Absolute Basophils (auto) 0.0T/MM3 Turbidity < 20 Sodium Level 143MEQ/L Potassium Level 4.4MEQ/L Chloride Level 104MEQ/L Carbon Dioxide Level 31MEQ/L Anion Gap 8MEQ/L Blood Urea Nitrogen 35.0MG/DL Creatinine 1.2MG/DL Glomerular Filtration Rate Calc 59 BUN/Creatinine Ratio 29RATIO Glucose Level 94MG/DL Calculated Osmolality 283MOSM/KG Calcium Level 9.9MG/DL Total Bilirubin 0.40MG/DL Icterus Index < 2 Aspartate Amino Transf (AST/SGOT) 23U/L Alanine Aminotransferase (ALT/SGPT) 18U/L Alkaline Phosphatase 109U/L Troponin I < 0.012ng/ml Total Protein 7.2G/DL Albumin 3.9G/DL Globulin 3.3G/DL Albumin/Globulin Ratio 1.2RATIO Chemistry Specimen Hemolysis < 15 Medications Current ED Medications Sodium Chloride (Normal Saline IV) 1,000 ml @ 999 mls/hr Q1H1M ONCE IV Last administered on 11/25/16t 18:41; Start 11/25/16 at 18:15; Stop 11/25/16 at 19:15 ; Status DC Progress Progress Patient has been completely asymptomatic while in the emergency Department blood pressures have remained slightly elevated while he was here patient was not orthostatic. Laboratories EKG CT scan were all noncontributory we'll discharge patient home ER he has a follow-up appointment with his primary medical physician on Monday I recommend he keep that appointment for reevaluation. EKG EKG : Rate: 60-100 Rhythm: sinus [place]: normal QRS: normal Intervals: normal ST/T: non-specific changes Interpreted by: signing physician CT CT : CT: Head no contrast Interpretation: Normal, Faxed Report STEPHANIE YEH MD Nov 25, 2016 18:03
--- OUTSIDE RECORDS SUMMARY | 2016-11-25 18:06 | XMS REPORT | Continuity of Care Document ---
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 Name Role Phone [employer] Unavailable Unavailable Problems Problem Status Onset Date Classification Date Reported Comments Source Chronic ischemic heart disease, unspecified 01/28/2015 Diagnosis 02/01/2015 [facility] Chest pain (finding) Active Problem 03/24/2015 [facility], [facility] Atherosclerosis of coronary artery (disorder) Active Problem 03/24/2015 [facility] Medications Medication Details Route Status Patient Instructions Ordering Provider Order Date Source No Known Medications No known medications Active [facility] Allergies, Adverse Reactions, Alerts Substance Category Reaction Severity Reaction type Status Date Reported Comments Source Primidone Assertion made patient "spacey" & depressed Propensity to adverse reactions to drug [facility], [address]. topiramate Assertion "spacey " & depressed Propensity to adverse reactions to drug [facility], [address]. Immunizations Immunization Date Given Site Status Last Updated Comments Source No data available for this section No data available for this section [facility], [address] Results Vital Signs Encounters Location Location Details Encounter Type Encounter Number Reason For Visit Attending Provider ADM Date DC Date Status Source [facility] [id number] Inpatient [id number] Eduardo Freedman 01/26/2015 01/28/2015 Active [facility] Cancel/ No Show [id number] . [facility] 01/28/2015 01/27/2015 [facility] [id number] Arnoldo Almonteel 04/01/2015 [facility] Procedures Procedure Code Date Perfomer Comments Source LV cors c PTCA 01/27/2015 [facility] No data available for this section [facility] bilat cataracts Code71, [email or web address]. microdiscectomy<sup>1</sup> 2012 [address]. prostate scraping<sup>2</sup> 2012 [address]. vasectomy [address]. vitrectomy-eye surgery-left [address]. Plan of Care Social History Assessment and Plan Family History Value Date Source Advance Directives Order Name Results Value Date Source
--- OUTSIDE RECORDS SUMMARY | 2016-11-25 18:06 | XMS REPORT | Continuity of Care Document ---
Author Author [facility] Organization [facility] Address Unknown Phone Unavailable Care Team Providers [employer] Secretary Name Role Phone Sherif Sharpe Primary Care Physician [phone] Source Comments Some departments are not documenting in the electronic medical record. 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 Temperature 36.4 C (97.6 F) 01/28/2016 3:05 PM CDT Respiratory Rate 12 01/09/2016 1:54 PM CDT Height 1.829 m (6') 08/29/2016 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 Weight 93.214 kg (205 lb 8 oz) 08/29/2016 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
[2016-11-25] MEDS ORDERED: NORMAL SALINE 1,000 ML IV ONE (18:15)
--- NOTE | 2016-11-25 18:21 | NUR ---
CT SCAN PT GONE TO CT SCAN.
[2016-11-25 18:39] LABS: BASOPHILS % (AUTO) 0.4 % (0-2); EOSINOPHILS # (AUTO) 0.3 T/MM3 (0-0.5); HCT - HEMATOCRIT 36.9 % (41-53); HGB - HEMOGLOBIN 12.1 GM/DL (13.5-17.5); IMMATURE GRANULOCYTE # (AUTO) 0.01 T/MM3 (0.00-0.03); IMMATURE GRANULOCYTE % (AUTO) 0.1 % (0.0-0.5); LYMPHOCYTES # (AUTO) 2.5 T/MM3 (1-4.8); LYMPHOCYTES % (AUTO) 36.9 % (23-45); MEAN CORPUSCULAR HGB 31.2 UUG (26-34); MEAN CORPUSCULAR HGB CONC(MCHC 32.8 GM/DL (31-37); MEAN CORPUSCULAR VOLUME 95.1 UM3 (80-100); MEAN PLATELET VOLUME 9.8 UM3 (9.4-12.4); MONOCYTES # (AUTO) 0.5 T/MM3 (0-0.8); MONOCYTES % (AUTO) 7.4 % (0-9.0); NEUTROPHILS #(AUTO)-ABSOLUTE 3.5 T/MM3 (1.8-7.7); NEUTROPHILS % (AUTO) 51.2 % (33-66); RED BLOOD COUNT 3.88 M/MM3 (4.50-5.90); WBC - WHITE BLOOD COUNT 6.8 T/MM3 (4.5-11.0)
[2016-11-25 18:47] LABS: ALBUMIN 3.9 G/DL (3.5-5.0); ALBUMIN/GLOBULIN RATIO 1.2 RATIO (1.1-2.2); ALKALINE PHOSPHATASE 109 U/L (38-126); ALT (SGPT) 18 U/L (21-72); ANION GAP 8 MEQ/L (5-15); AST (SGOT) 23 U/L (17-59); BUN/CREATININE RATIO 29 RATIO (6-26); CALCIUM 9.9 MG/DL (8.4-10.2); CHLORIDE 104 MEQ/L (98-107); CO2 - CARBON DIOXIDE 31 MEQ/L (22-30); CREATININE 1.2 MG/DL (0.8-1.5); GLOMERULAR FILTRATION RATE 59; GLUCOSE 94 MG/DL (75-110); POTASSIUM 4.4 MEQ/L (3.6-5); SODIUM 143 MEQ/L (134-144); TOTAL PROTEIN 7.2 G/DL (6.3-8.2)
--- NOTE | 2016-11-25 19:31 | NUR ---
CT SCAN AND XRAY PT BACK FROM XRAY.
[2016-11-25 20:30] VITALS: BP 165/75; PULSE 86; RESP 18; TEMP 98.9; O2SAT 98
--- NOTE | 2016-11-25 20:51 | NUR ---
DISCHARGE PT GIVEN INSTRUCTIONS FOR CONT CARE OF DEHYDRATION W/ FOLLOWUP. PT VERBALAIZED UNDERSTANDING AND SIGNED FORM, PT LEFT ER AMBUALTORY W/ OF WALKER, ALERT, VS CHARTED IN NO ACUTE DISTRESS.
--- NOTE | 2016-11-26 11:37 | DI ---
Indication: ITS.REASON: dizzy and syncopal PROCEDURE: CT HEAD W/O CONTRAST: Encounter: Initial Comparison: August 26, 2014 Technique: Axial CT images through the head were performed without contrast. Iterative Reconstruction dose reducing technique was utilized. FINDINGS: The ventricles are of normal size, shape, and contour for the patient's age. There are scattered areas of low attenuation in the white matter which most likely represent changes from chronic microvascular ischemia. The brainstem, cerebellum, and cerebral hemispheres otherwise have a normal morphology and CT attenuation. There is no evidence of midline displacement. No hemorrhage, signs of acute territorial stroke, mass effect, mass lesions, or edema is evident. The visualized portions of the skull base, midface, and calvarium demonstrate no abnormality. The paranasal sinuses are well aerated and free of significant disease. The tympanic and mastoid cavities appear normal. IMPRESSION: No acute intracranial abnormality or hemorrhage. There is a preliminary report by [facility]. .
== END 2016-11-25 20:51 | disposition home or self-care (01) ==
LOC: ED 16:43
DX: I95.89 Other hypotension (principal); R42 Dizziness and giddiness; I10 Essential (primary) hypertension; I25.10 Atherosclerotic heart disease of native coronary artery without angina pectoris; Z95.1 Presence of aortocoronary bypass graft; Z95.5 Presence of coronary angioplasty implant and graft
CPT/HCPCS: 70450; 80053; 84484; 85025; 93005; 96360; 99284; J7030

== ENCOUNTER → 2016-12-19 | Outpatient (CLI) | payer MEDICARE, OTHER ==
[~2016-12-19] MED LIST changes: +ALPH600C7 PO; -AMOX1TAB16 PO; +ASCO500T10 PO; +ASPI-557 PO; -ASPI325T PO; -BISA10SU61 RECTALLY; +CALC1CAP22 PO; +CALC625T PO; +CRAN500T2 PO; +CYAN25002 PO; +DOCU-168 PO; -DULO30CA52 PO; +DULO60CA56 PO; +FISH1CAP59 PO; +FLUD0.1T PO; -FURO-154 PO; -HYDR-347 PO; -IPRA3AMP AEROSOL; -MAGN400O4 PO; +MAGNESIUM THREONATE PO; +MELA5TAB14 PO; +MIDO5TAB PO; +UBID100C10 PO; +[UNRECOGNIZED DRUG - CODE] PO; +[UNRECOGNIZED DRUG - CODE] PO
[2016-12-19 10:42] LABS: BASOPHILS % (AUTO) 0.2 % (0-2); EOSINOPHILS # (AUTO) 0.1 T/MM3 (0-0.5); EOSINOPHILS % (AUTO) 0.9 % (0-4); HCT - HEMATOCRIT 40.8 % (41-53); HGB - HEMOGLOBIN 13.4 GM/DL (13.5-17.5); IMMATURE GRANULOCYTE # (AUTO) 0.02 T/MM3 (0.00-0.03); IMMATURE GRANULOCYTE % (AUTO) 0.1 % (0.0-0.5); LYMPHOCYTES # (AUTO) 1.8 T/MM3 (1-4.8); LYMPHOCYTES % (AUTO) 11.8 % (23-45); MEAN CORPUSCULAR HGB 30.9 UUG (26-34); MEAN CORPUSCULAR HGB CONC(MCHC 32.8 GM/DL (31-37); MEAN CORPUSCULAR VOLUME 94.2 UM3 (80-100); MEAN PLATELET VOLUME 9.8 UM3 (9.4-12.4); MONOCYTES # (AUTO) 1.2 T/MM3 (0-0.8); MONOCYTES % (AUTO) 8.2 % (0-9.0); NEUTROPHILS #(AUTO)-ABSOLUTE 11.8 T/MM3 (1.8-7.7); NEUTROPHILS % (AUTO) 78.8 % (33-66); RED BLOOD COUNT 4.33 M/MM3 (4.50-5.90); WBC - WHITE BLOOD COUNT 14.9 T/MM3 (4.5-11.0)
[2016-12-19 10:46] LABS: BLOOD, URINE 1+ (NEGATIVE); COLOR,URINE YELLOW (YELLOW); LEUKOCYTE ESTERASE ,URINE TRACE (NEGATIVE); NITRITE,URINE POSITIVE (NEGATIVE); UROBILINOGEN,URINE 0.2 EU/DL (NORMAL)
[2016-12-19 10:50] LABS: ALBUMIN 4.6 G/DL (3.5-5.0); ALBUMIN/GLOBULIN RATIO 1.4 RATIO (1.1-2.2); ALKALINE PHOSPHATASE 129 U/L (38-126); ALT (SGPT) 14 U/L (21-72); ANION GAP 15 MEQ/L (5-15); AST (SGOT) 22 U/L (17-59); BUN/CREATININE RATIO 38 RATIO (6-26); CALCIUM 10.2 MG/DL (8.4-10.2); CHLORIDE 100 MEQ/L (98-107); CO2 - CARBON DIOXIDE 29 MEQ/L (22-30); CREATININE 0.9 MG/DL (0.8-1.5); GLOMERULAR FILTRATION RATE 82; GLUCOSE 198 MG/DL (75-110); POTASSIUM 4.2 MEQ/L (3.6-5); SODIUM 144 MEQ/L (134-144)
[2016-12-19 10:52] LABS: BACTERIA,URINE 2+ (NEGATIVE); WBC CLUMPS,URINE FEW; WBC,URINE 20-30 /HPF (0-5)
== END ==
LOC: LAB 10:17
PROVIDERS: ATTEND Family Medicine
DX: E87.5 Hyperkalemia (principal); R52 Pain, unspecified; R82.90 Unspecified abnormal findings in urine; R82.99 Other abnormal findings in urine
CPT/HCPCS: 36415; 80053; 81001; 85025; 87086; 87088; 87186

== ENCOUNTER → 2016-12-27 | Outpatient (CLI) | payer MEDICARE, OTHER ==
--- NOTE | 2016-12-27 11:00 | DI ---
Indication: ITS.REASON: M54.2 NECK PAIN PROCEDURE: MRI CERVICAL SPINE W/O CONTRAS: Encounter: Initial Comparison: None Technique: Multiplanar multisequence MR imaging of the cervical spine was performed without contrast. Findings: Evaluation is somewhat limited due to [id number] ratio and patient positioning limitations in the scanner. There is no obvious acute fracture. There is loss of signal in the upper cervical vertebral body region. The cervical and upper thoracic spinal cord signal intensity is grossly normal. Paraspinal soft tissues are not well evaluated. Segmental analysis: C2-C3: Small central disk bulge without central canal or neural foraminal stenosis. C3-C4: Focal central protrusion compressing the thecal sac and spinal cord with moderate central canal stenosis. No significant neural foraminal stenosis. C4-C5: Degenerative facet and uncovertebral hypertrophy resulting in severe right and moderate left neural foraminal stenosis. No focal disk herniation or canal stenosis. C5-C6: Central protrusion and disk osteophyte complex resulting in mild central canal stenosis. Moderate right and mild left neural foraminal stenosis. Degenerative facet disease. C6-C7: Focal central protrusion without canal stenosis. Degenerative facet and uncovertebral changes with moderate right and mild left neural foraminal stenosis. C7-T1: No focal disk herniation, central canal or neural foraminal stenosis. Impression: Limited exam as above with areas of central canal and neural foraminal stenosis worst at C3-C4. .
== END ==
LOC: IMA 09:01
PROVIDERS: ATTEND Psychiatry & Neurology Neurology
DX: M48.02 Spinal stenosis, cervical region (principal); M47.812 Spondylosis without myelopathy or radiculopathy, cervical region; M50.21 Other cervical disc displacement, high cervical region; M50.222 Other cervical disc displacement at C5-C6 level

== ENCOUNTER 2017-01-14 14:28 | Emergency (ER) | payer MEDICARE, OTHER ==
[~2017-01-14] VITALS: Ht 177.8 cm; Wt 90.0 kg
[2017-01-14 14:30] VITALS: Ht 177.8 cm; Wt 90.0 kg
--- OUTSIDE RECORDS SUMMARY | 2017-01-14 14:33 | XMS REPORT | Continuity of Care Document ---
Author Author [facility] Organization [facility] Address Unknown Phone Unavailable Support Name Relationship Address Phone KVNG SOUZA MD Caregiver [address] [place] [address] Unavailable STEPHANIE YEH MD Caregiver [address] [facility] [address] [place] [address] Unavailable RK HOWELL Next Of Kin [address] [place] [address] Insurance Providers Guarantor Manoj Howell Address [address] [place] [address] Email [email or web address] Payer Medicare Policy Number [id number] Subscriber's Name Manoj Howell Relationship 18 Self Payer [facility] Retirevat Policy Number [id number] Subscriber's Name Manoj Howell Relationship 18 Self Group Number [id number] Advance Directives Directive Response Recorded Date/Time Advanced Directives Type None 11/25/16 4:44pm Chief Complaint and Reason for Visit Chief Complaint Acute Medical Problem Reason for Visit Transient hypotension Problems Active Problems Medical Problem Onset Date [...] Unknown Acute UTI (urinary tract infection) Unknown Chronic Past Problems Medical Problem Onset Date Fracture of femoral neck, right, closed Unknown Hypertension Unknown Tachycardia Unknown Transient hypotension Unknown Medications Current Home Medications Medication Dose Units Route Directions Days Qty Instructions Start Date Alpha Lipoic Acid 600 Mg Capsule 600 Mg Oral Every Monday Ascorbic Acid 500 Mg Tablet 500 Mg Oral Daily 11/25/16 Aspirin (Aspir 81) 81 Mg Tablet. 81 Mg Oral Daily 11/25/16 Atorvastatin Calcium 40 Mg Tablet 40 Mg Oral Bedtime 11/25/16 Calcium Carbonate/Vitamin D3 (Calcium 600 + Vit D 400 Softgl) 1 Each Capsule 2 Cap Oral Twice A Day 11/25/16 Calcium Polycarbophil (Fibercon) 625 Mg Tablet 625 Mg Oral Daily 11/25/16 Carbidopa/Levodopa (Carbidopa-Levodopa 25-100 Tab) 1 Each Tablet 2 Tab Oral Three Times Daily/Empty Stomac 11/25/16 Cranberry Extract (Cranberry) 500 Mg Tablet 4,500 Mg Oral Daily 11/25/16 Cyanocobalamin (Vitamin B-12) (Vitamin B12) 2,500 Mcg Tablet 2,500 Mcg Oral Every Monday, Monday, , And Monday10/11/16 Cyanocobalamin (Vitamin B-12) (Vitamin B-12) 2,500 Mcg Tab.subl 2,500 Mcg Oral 4 Times A Week 11/25/16 Docusate Sodium (Colace) 100 Mg Capsule 1 Cap Oral Twice A Day as needed for Constipation 11/25/16 Duloxetine Hcl 60 Mg Capsule. 60 Mg Oral Daily 11/25/16 Fish Oil/Dha/Epa (Fish Oil 1,200 Mg Fish Oil) 1 Each Capsule 1,200 Mg Oral Every Monday, Monday, And Monday11/25/16 Fludrocortisone Acetate 0.1 Mg Tablet 0.1 Mg Oral Daily 11/25/16 Insulin Degludec (Tresiba Flextouch U-200) 200 Unit/1 Ml Insuln.pen 32 Unit Sub-Q Bedtime 11/25/16 Insulin Lispro (Humalog) 100 Unit/Ml Inj 7 Unit Sub-Q Give With Lunch 10/11/16 Insulin Lispro (Humalog) 100 Unit/Ml Inj 8 Unit Sub-Q Give With Supper 10/11/16 Insulin Lispro (Humalog) 100 Unit/Ml Inj 8 Unit Sub-Q Give With Breakfast 11/25/16 Levocarnitine (L-Carnitine) 500 Mg Tablet 500 Mg Oral Every Monday And Monday11/25/16 Levothyroxine Sodium 50 Mcg Tablet 50 Mcg Oral Motuwethfrsa@[employer] 11/25/16 Levothyroxine Sodium 50 Mcg Tablet 100 Mcg Oral Medina@[employer] 11/25/16 Magnesium Threonate 500 Mg Oral Bedtime 11/25/16 Melatonin 5 Mg Tablet 5-10 Mg Oral Bedtime as needed for Insomnia 11/25/16 Midodrine Hcl 5 Mg Tablet 5 Mg Oral Daily 11/25/16 Omeprazole 20 Mg Capsule. 20 Mg Oral Before Breakfast 11/25/16 Polyethylene Glycol 3350 (Miralax) 119 Gm Powder 17 G Oral Daily as needed for Constipation 11/25/16 Ubidecarenone (Coq-10) 100 Mg Capsule 100 Mg Oral Every Monday And Monday11/25/16 Vitamin B Complex (Balance B-50) 1 Each Tablet 1 Tab Oral Twice A Week 11/25/16 Past Home Medications Medication Directions Ordered Status [...] Intraven Twice A Day 10/11/16 Discontinued Hydrocodone/Acetaminophen (Nichols 7.5-325 Tablet) 7.5-325 Tablet, 1-2 Tab Oral [...] Problem Response Recorded Date/Time Onset Date Status Chewing Tobacco Status No 06/10/2013 1:18pm Not Applicable Not Applicable Hx Substance Use No 11/25/2016 7:24pm Not Applicable Not Applicable Hx Alcohol Use No 11/25/2016 7:24pm Not Applicable Not Applicable Has the pt used tobacco in the last 12 months No 10/11/2016 2:33pm Not Applicable Not Applicable Tobacco Usage none 03/26/2015 12:39pm Not Applicable Not Applicable Query Response Start Date Stop Date Smoking Status Never smoker Hospital Discharge Instructions No hospital discharge instructions. Plan of Care Discharge Date 11/25/16 8:51pm Disposition 01 DISCHARGED HOME, SELF-CARE Condition at Discharge Stable Instructions/Education Provided Dehydration (ED) Prescriptions See Medication Section Referrals KVNG SOUZA MD Address: [address] [place] [address] [place] [address] Note: Follow-up on Monday morning as scheduled Care Plan and Goals Physician Care Plan Problem: Volume depletion Goal: Follow up with primary care provider Instructions: Take medications and follow care plan as discussed/written Functional Status No functional status results. Allergies, Adverse Reactions, Alerts Allergen Type Severity Reaction Status Last Updated Primidone Allergy Unknown Active 10/07/16 Sulfamethoxazole Allergy Unknown CRITICALLY HIGH POTASSIUM Active 10/07/16 Trimethoprim Allergy Unknown CRITICALLY HIGH POTASSIUM Active 10/07/16 Topiramate Allergy Unknown Active 10/07/16 Immunizations Query Response on File Recorded Date/Time Hx Influenza Vaccination Y 06/201610/11/16 2:33pm Hx Pneumococcal Vaccination Y 02/23, 07/2610/11/16 2:33pm Hx Influenza Vaccination Y 06/201610/11/16 2:33pm DTaP Vaccine History 201511/25/16 7:24pm Influenza Vaccine Hx 201511/25/16 7:24pm Tdap Vaccine Hx 01/09/16 10/07/16 2:18am Vital Signs Acute Vital Signs Vital Response Date/Time Temperature (Fahrenheit) 98.9 deg F (96.8 - 99.1) 11/25/2016 8:30pm Temperature (Calculated Celsius) 37.80075 degrees C (36.0 - 37.3) 11/25/2016 8:30pm Temperature Source Oral 10/11/2016 9:39am Pulse Rate (adult) 86 bpm (60 - 100) 11/25/2016 8:30pm Respiratory Rate 18 breaths/min (10 - 20) 11/25/2016 8:30pm O2 Sat by Pulse Oximetry 98 % (90 - 100) 11/25/2016 8:30pm Oxygen Delivery Method Nasal Cannula 10/16/2016 10:47pm Oxygen Delivery Method Room Air 10/21/2016 8:00am Oxygen Flow Rate 1.00 L/min 10/20/2016 1:59am Fraction of Inspired Oxygen (FIO2) 27 % 10/20/2016 1:59am Blood Pressure 165/75 mm Hg 11/25/2016 8:30pm Blood Pressure Source Automatic Cuff 10/21/2016 8:00am Height (Feet) 6 feet 11/25/2016 4:44pm Height (Inches) 0 inches 11/25/2016 4:44pm Weight (Kilograms) 68.000 kg 11/25/2016 4:44pm Body Mass Index (BMI) 20.0 11/25/2016 4:44pm Results Laboratory Results Test Name Result Units Flags Reference Collection Date/Time Result Date/ Time Comments Urine Hyaline Casts 0-1 /LPF 10/05/2016 1:24pm [...] Time 31.8 SEC 24-36 10/07/2016 7:46am 8:10am ZQ-Was-Z-Type Natriuretic Peptide 9210 PG/ML H 0-175 10/09/2016 [...] potentially toxic. Vitamin D, 25-Hydroxy performed at [facility] Reference Lab, [facility] [place] [address] Riveting Machine Operator Leoncio Butler DO Urine WBC Clumps MANY H 10/16/2016 8:11am 10/16/2016 8:37am Urinalysis Comment MICROSCOPIC NOT IND. 10/12/2016 12:24pm 2016 12:32pm Glucometer 201 mg/dL H 75-110 10/21/2016 2:54pm 10/21/2016 2:56pm Cholesterol Level 107 MG/DL L 132-199 10/31/2016 3:23pm 11/01/2016 12: 37am Triglycerides Level 89 MG/DL 40-160 10/31/2016 3:23pm 11/01/2016 12: 37am HDL Cholesterol Direct 33 MG/DL L 40-60 10/31/2016 3:23pm 11/01/2016 12: 37am LDL Cholesterol, Calculated 56.2 L 66-159 10/31/2016 3:23pm 2016 12:37am VLDL Cholesterol 17.8 MG/DL 0-28 10/31/2016 3:23pm 11/01/2016 12:37am Cholesterol/HDL Ratio 3.2 RATIO 0-5.0 10/31/2016 3:23pm 11/01/2016 12: 37am Thyroid Stimulating Hormone (TSH) 5.41 MIU/L H 0.47-4.68 10/31/2016 3: 23pm 10/31/2016 4:28pm Hemoglobin A1c 7.5 % 6.1-7.9 10/31/2016 3:23pm 10/31/2016 5:26pm <6.0 NON-DIABETIC RANGE 6.1-7.9 [facility] TARGET RANGE >8.0 ACTION SUGGESTED Urine Random Creatinine 151.3 MG/DL 10/31/2016 3:23pm 11/01/2016 3: 18am Urine Microalbumin 60.0 MG/L H 0-17 10/31/2016 3:23pm 11/01/2016 3:23am Urine Microalbumin/Creatinine Ratio 39.7 MG/GM H 0-30 10/31/2016 3:23pm 11/01/2016 3:23am Prostate Specific Antigen 0.6 ng/mL 0.0-6.5 10/31/2016 3:23pm 2016 10:31pm . AUA PSA Best Practice Guidelines: . Age-Adjusted PSA Values by Ethnic Group Age Range Asians - Caucasians . Americans 40-49 0-2.0 0-2.0 0-2.5 50-59 0-3.0 0-4.0 0-3.5 60-69 0-4.0 0-4.5 0-4.5 70-79 0-5.0 0-5.5 0-6.5 PSA performed at [facility] Reference Lab, [facility] [place] [address] Riveting Machine Operator Leoncio Butler, Urine Collection Type CLEANCATCH-MIDSTREAM 11/14/2016 2:01pm 2016 2:08pm Urine Culture Indicated CULT REFLEXED &SETUP 11/14/2016 2:01pm 02/2017 2:20pm Urine Color YELLOW YELLOW 11/25/2016 2:15pm 11/25/2016 2:34pm Urine Turbidity CLEAR CLEAR 11/25/2016 2:15pm 11/25/2016 2:34pm Urine Specific [place] 1.025 1.015-1.025 11/25/2016 2:15pm 2016 2:34pm Urine pH 5.0 5.0-8.0 11/25/2016 2:15pm 11/25/2016 2:34pm Urine Leukocyte Esterase NEGATIVE NEGATIVE 11/25/2016 2:15pm 2016 2:34pm Urine Nitrite NEGATIVE NEGATIVE 11/25/2016 2:15pm 11/25/2016 2:34pm Urine Protein TRACE A NEGATIVE 11/25/2016 2:15pm 11/25/2016 2:34pm Urine Glucose (UA) NEGATIVE NEGATIVE 11/25/2016 2:15pm 11/25/2016 2: 34pm Urine Ketones 1+ A NEGATIVE 11/25/2016 2:15pm 11/25/2016 2:34pm Urine Urobilinogen 0.2 EU/DL NORMAL 11/25/2016 2:15pm 11/25/2016 2: 34pm Urine Bilirubin NEGATIVE NEGATIVE 11/25/2016 2:15pm 11/25/2016 2: 34pm Urine Blood NEGATIVE NEGATIVE 11/25/2016 2:15pm 11/25/2016 2:34pm Urine WBC 1-3 /HPF 0-5 11/25/2016 2:15pm 11/25/2016 2:56pm Urine RBC 1-3 /HPF 0-3 11/25/2016 2:15pm 11/25/2016 2:56pm Urine Squamous Epithelial Cells 0-5 11/25/2016 2:15pm 11/25/2016 2: 56pm Urine Bacteria NONE SEEN NEGATIVE 11/25/2016 2:15pm 11/25/2016 2: 56pm Urine Culture Indicated CULT NOT INDICATED 11/25/2016 2:15pm 2016 2:56pm White Blood Count 6.8 T/MM3 4.5-11.0 11/25/2016 6:33pm 11/25/2016 6: 39pm Red Blood Count 3.88 M/MM3 L 4.50-5.90 11/25/2016 6:33pm 11/25/2016 6: 39pm Hemoglobin 12.1 GM/DL L 13.5-17.5 11/25/2016 6:33pm 11/25/2016 6:39pm Hematocrit 36.9 % L 41-53 11/25/2016 6:33pm 11/25/2016 6:39pm Mean Corpuscular Volume 95.1 UM3 80-100 11/25/2016 6:33pm 11/25/2016 6: 39pm Mean Corpuscular Hemoglobin 31.2 UUG 26-34 11/25/2016 6:33pm 2016 6:39pm Mean Corpuscular Hemoglobin Concent 32.8 GM/DL 31-37 11/25/2016 6:33pm 11/25/2016 6:39pm RDW Standard Deviation 41.7 FL 36.9-50.2 11/25/2016 6:33pm 11/25/2016 6 :39pm Platelet Count 225 T/MM3 130-400 11/25/2016 6:33pm 11/25/2016 6:39pm Mean Platelet Volume 9.8 UM3 9.4-12.4 11/25/2016 6:33pm 11/25/2016 6: 39pm Neutrophils (%) (Auto) 51.2 % 33-66 11/25/2016 6:33pm 11/25/2016 6: 39pm Lymphocytes (%) (Auto) 36.9 % 23-45 11/25/2016 6:33pm 11/25/2016 6: 39pm Monocytes (%) (Auto) 7.4 % 0-9.0 11/25/2016 6:33pm 11/25/2016 6:39pm Eosinophils (%) (Auto) 4.0 % 0-4 11/25/2016 6:33pm 11/25/2016 6:39pm Basophils (%) (Auto) 0.4 % 0-2 11/25/2016 6:33pm 11/25/2016 6:39pm Immature Granulocyte % (Auto) 0.1 % 0.0-0.5 11/25/2016 6:33pm 2016 6:39pm Absolute Neutrophils (auto) 3.5 T/MM3 1.8-7.7 11/25/2016 6:33pm 2016 6:39pm Absolute Lymphocytes (auto) 2.5 T/MM3 1-4.8 11/25/2016 6:33pm 2016 6:39pm Absolute Monocytes (auto) 0.5 T/MM3 0-0.8 11/25/2016 6:33pm 11/25/2016 6:39pm Absolute Eosinophils (auto) 0.3 T/MM3 0-0.5 11/25/2016 6:33pm 2016 6:39pm Absolute Basophils (auto) 0.0 T/MM3 0-0.2 11/25/2016 6:33pm 11/25/2016 6:39pm Absolute Immature Granulocyte (auto 0.01 T/MM3 0.00-0.03 11/25/2016 6: 33pm 11/25/2016 6:39pm Icterus Index < 2 0-7 11/25/2016 6:33pm 11/25/2016 6:47pm Chemistry Specimen Hemolysis < 15 0-25 11/25/2016 6:33pm 11/25/2016 6 :47pm 0-25: Specimen Exhibited No Hemolysis. Turbidity < 20 0-20 11/25/2016 6:33pm 11/25/2016 6:47pm Sodium Level 143 MEQ/L 134-144 11/25/2016 6:33pm 11/25/2016 6:47pm Potassium Level 4.4 MEQ/L 3.6-5 11/25/2016 6:33pm 11/25/2016 6:47pm Chloride Level 104 MEQ/L 98-107 11/25/2016 6:33pm 11/25/2016 6:47pm Carbon Dioxide Level 31 MEQ/L H 22-30 11/25/2016 6:33pm 11/25/2016 6: 47pm Anion Gap 8 MEQ/L 5-11/25/2016 6:33pm 11/25/2016 6:47pm Blood Urea Nitrogen 35.0 MG/DL H 9-11/25/2016 6:33pm 11/25/2016 6: 47pm Creatinine 1.2 MG/DL 0.8-1.5 11/25/2016 6:33pm 11/25/2016 6:47pm BUN/Creatinine Ratio 29 RATIO H 6-11/25/2016 6:33pm 11/25/2016 6: 47pm Glomerular Filtration Rate Calc 59 11/25/2016 6:33pm 11/25/2016 6: 47pm Glucose Level 94 MG/DL 75-110 11/25/2016 6:33pm 11/25/2016 6:47pm Calculated Osmolality 283 MOSM/KG H 261-280 11/25/2016 6:33pm 2016 6:47pm Calcium Level 9.9 MG/DL 8.4-10.2 11/25/2016 6:33pm 11/25/2016 6:47pm Total Bilirubin 0.40 MG/DL 0.20-1.30 11/25/2016 6:33pm 11/25/2016 6: 47pm Alkaline Phosphatase 109 U/L 38-126 11/25/2016 6:33pm 11/25/2016 6: 47pm Total Protein 7.2 G/DL 6.3-8.2 11/25/2016 6:33pm 11/25/2016 6:47pm Albumin 3.9 G/DL 3.5-5.0 11/25/2016 6:33pm 11/25/2016 6:47pm Globulin 3.3 G/DL 2.4-3.6 11/25/2016 6:33pm 11/25/2016 6:47pm Albumin/Globulin Ratio 1.2 RATIO 1.1-2.2 11/25/2016 6:33pm 11/25/2016 6 :47pm Aspartate Amino Transf (AST/SGOT) 23 U/L 17-59 11/25/2016 6:33pm 2016 6:47pm Alanine Aminotransferase (ALT/SGPT) 18 U/L L 21-72 11/25/2016 6:33pm 6:47pm Troponin I < 0.012 ng/ml 0-0.12 11/25/2016 6:33pm 11/25/2016 6:58pm Troponin values with a difference of 55% increase from orginal troponin value represent a true biological DELTA value. (%increase Calc=Orginal Troponin value, divided by subsequent Troponin value, multiplied by 100) Microbiology Results Procedure Source Organism/Result Collection Date/Time Result Date/Time Result Status Blood Culture Peripheral/Iv Start NO GROWTH AFTER 5 DAYS 10/09/2016 11: 29am 10/14/2016 11:50am Final Urine Culture Urine, Clean Catch-Midstream ESCHERICHIA COLI 11/14/2016 2: 21pm 11/16/2016 7:17am Final Procedures Procedure Status Date Provider(s) Urinalysis auto w/scope Completed 10/05/16 Culture aerobic identify Completed 10/05/16 Urine culture/colony count Completed 10/05/16 Microbe susceptible ana luisa Completed 10/05/16 Treat thigh fracture Completed 10/07/16 ABBEY GALE MD REPLACE OF R HIP JT, FEMORAL WITH SYNTH SUB, OPEN APPROACH Completed ABBEY GALE MD Gait training therapy Completed 10/11/16 RADHA BUSBY MD Pt eval mod complex 30 min Completed 10/11/16 RADHA BUSBY MD Therapeutic exercises Completed 10/11/16 RADHA BUSBY MD Ot eval mod complex 45 min Completed 10/11/16 RADHA BUSBY MD GAIT TRAINING/AMBULAT TREATMENT USING ASSIST EQUIPMENT Completed 10/11/16 RADHA BUSBY MD THERAPEUTIC EXERCISE TREATMENT OF MUSCULOSK WHOLE Completed 10/11/16 RADHA BUSBY MD HOME MANAGEMENT TREATMENT Completed 10/11/16 RADHA BUSBY MD Dxa bone density axial Completed 10/31/16 Routine venipuncture Completed 10/31/16 Metabolic panel total ca Completed 10/31/16 Lipid panel Completed 10/31/16 Microalbumin quantitative Completed 10/31/16 Assay of urine creatinine Completed 10/31/16 Glycosylated hemoglobin test Completed 10/31/16 Assay of psa total Completed 10/31/16 Assay thyroid stim hormone Completed 10/31/16 Urinalysis auto w/scope Completed 11/14/16 Urine culture/colony count Completed 11/14/16 Urine bacteria culture Completed 11/14/16 Microbe susceptible ana luisa Completed 11/14/16 Encounters Encounter Location Arrival/Admit Date Discharge/Depart Date Attending Provider Departed Emergency Room [facility] 11/25/16 4:43pm 11/25/16 8: 51pm STEPHANIE YEH MD Registered [facility] 11/25/16 2:27pm KVNG SOUZA MD Registered [facility] 11/14/16 1:39pm KVNG SOUZA MD Registered [facility] 10/31/16 2:43pm FRAN DELA CRUZ MD Registered [facility] 10/31/16 11:18am RADHA FUENTES MD Discharged Inpatient [facility] 10/11/16 12:14pm 10/21/16 3:50pm RADHA BUSBY MD Discharged Inpatient [facility] 10/07/16 2:32am 10/11/16 1:06pm KVNG SOUZA MD Registered Clinic [facility] 10/05/16 12:37pm RENETTA FERRER Recent Diagnosis
--- OUTSIDE RECORDS SUMMARY | 2017-01-14 14:33 | XMS REPORT | Continuity of Care Document ---
Author Author [facility] Organization [facility] Address Unknown Phone Unavailable Care Team Providers Care Architecture Technician Name Role Phone Sherif Sharpe Primary Care Physician [phone] Source Comments Some departments are not documenting in the electronic medical record. If you do not see the information that you expected, contact Release of Information in the Health Information Management department at [phone] for further assistance in locating additional records.[facility] Active Allergies and Adverse Reactions Allergen [...] capsule daily. Indications: 16 CHRONIC MUSCULOSKELETAL PAIN polyethylene glycol 3350 Take 17 g by mouth daily Active (GLYCOLAX; MIRALAX) 17 as needed. gram/dose powder Insulin Lispro (Human) Inject subcutaneous (16 01/28/20 Active (HUMALOG) 100 unit/mL units) in the morning, 16 crtg (6 units) in the afternoon, and then (11 units) in the evening INSULIN DEGLUDEC (TRESIBA Inject 32 Units under the Active FLEXTOUCH U-200 SC) skin at bedtime daily. carbidopa/levodopa Take 2 Tabs by mouth Active (SINEMET) 25/100 mg three times daily. tablet midodrine (PROAMATINE) 5 Take 5 mg by mouth daily. Active mg tablet INSULIN LISPRO (HUMALOG Inject under the skin. 8 Active SC) units before breakfast, 7 units before lunch, 8 units before dinner gabapentin (NEURONTIN) Take 1 Cap by mouth twice 60 Cap 5 01/04/20 Active 100 mg capsule daily. Start by taking 17 100mg cap. At bedtime daily for 5 days then change begin taking twice a day DOCOSAHEXANOIC ACID/EPA Take 1,200 mg by mouth 12/21/19 Discontin (FISH OIL PO) daily. 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) 11/16/2015 Orthostatic hypotension 11/16/2015 Most Recent Encounters Date Type Specialty Providers Description 01/03/2017 Telephone Neurology Yan Aceves MD Results 01/02/2017 Ancillary Radiology Outpatient, Radiologist Diagnosis unknown Orders (Primary Dx) 12/30/2016 Telephone Neurology Yan Aceves MD Other - MRI report 12/27/2016 Hospital Radiology Encounter 12/20/2016 Office Visit Neurology Yan Aceves MD Parkinsonism, unspecified Parkinsonism type (Primary Dx); Peripheral polyneuropathy (HCC); Orthostatic hypotension; Constipation, unspecified constipation type; Neck pain 11/23/2016 Telephone Neurology Yan Aceves MD Other - "zoning" 10/20/2016 Telephone Neurology Christian Hernandes MD Fall Immunizations Name Dates Previously Given Next Due Tdap Vaccine 01/09/2016 Social History Tobacco Use Types Packs/Day Years Used Date Never Smoker Smokeless Tobacco: Never Used Alcohol Use Drinks/Week oz/Week Comments No 0 Standard 0.0 drinks or equivalent Last Filed Vital Signs Vital Sign Reading Time Taken Blood Pressure 126/70 12/20/2016 4:22 PM CDT Pulse 84 12/20/2016 4:22 PM CDT Temperature 36.4 C (97.6 F) 01/28/2016 3:05 PM CDT Respiratory Rate 12 01/09/2016 1:54 PM CDT Height 1.829 m (6' 0.01") 12/20/2016 4:19 PM CDT Weight 88.6 kg (195 lb 5.2 oz) 12/20/2016 4:19 PM CDT Body Mass Index 26.49 12/20/2016 4:19 PM CDT Oxygen Saturation 99% 01/28/2016 3:05 PM CDT Plan of Care Health Maintenance Due Date Last Done Comments Physical (Comprehensive) 1945 Exam Shingles Vaccine 1998 Prevnar/Pneumovax (#1) 2003 Influenza Vaccine 05/12/2017 Tetanus Vaccine 01/08/2026 01/09/2016 Pertussis Vaccine Completed 01/09/2016 Results from Last 3 Months * MRI C-SPINE EXTERNAL IMAGING (12/27/2016) Narrative This order has been auto finalized and does not contain a result. * MRI C-SPINE WO CONTRAST (12/27/2016)
--- OUTSIDE RECORDS SUMMARY | 2017-01-14 14:33 | XMS REPORT | Continuity of Care Document ---
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 Natural Foods Clerk Name Role Phone [employer] Unavailable Unavailable Problems Problem Status Onset Date Classification Date Reported Comments Source Chronic ischemic heart disease, unspecified 01/28/2015 Diagnosis 02/01/2015 [facility] Chest pain (finding) Active Problem 03/24/2015 [facility] Atherosclerosis of coronary artery (disorder) Active Problem 03/24/2015 [facility] Medications Medication Details Route Status Patient Instructions Ordering Provider Order Date Source No Known Medications No known medications Active [facility] Allergies, Adverse Reactions, Alerts Substance Category Reaction Severity Reaction type Status Date Reported Comments Source Primidone Assertion made patient "spacey" & depressed Propensity to adverse reactions to drug [facility] topiramate Assertion "spacey " & depressed Propensity to adverse reactions to drug [facility]. Immunizations Immunization Date Given Site Status Last Updated Comments Source No data available for this section No data available for this section [facility]. Results Vital Signs Encounters Location Location Details Encounter Type Encounter Number Reason For Visit Attending Provider ADM Date DC Date Status Source [facility] [id number] Inpatient [id number] Eduardo Freedman 01/26/2015 01/28/2015 Active [facility] Cardiology Services Cancel/ No Show [id number] . [facility] 01/28/2015 01/27/2015 [facility] Cardiology [facility] Cardiology Services Clinic [id number] Arnoldo Katie 04/01/2015 [facility] Procedures Procedure Code Date Perfomer Comments Source LV cors c PTCA 01/27/2015 [facility] No data available for this section [facility] Cardiology [facility] bilat cataracts [facility]. microdiscectomy<sup>1</sup> 2012 [facility] prostate scraping<sup>2</sup> 2012 [facility] vasectomy [facility], [facility]. vitrectomy-eye surgery-left [facility], [facility]. Plan of Care Social History Assessment and Plan Family History Value Date Source Advance Directives Order Name Results Value Date Source
[2017-01-14] MEDS ORDERED: NORMAL SALINE 1,000 ML IV ONE (14:49)
--- OUTSIDE RECORDS SUMMARY | 2017-01-14 14:57 | XMS REPORT | Continuity of Care Document ---
Author Author [facility] Organization [facility] Address Unknown Phone Unavailable Care Team Providers Care Ic Designer Custom Name Role Phone Sherif Sharpe Primary Care Physician [phone] Source Comments Some departments are not documenting in the electronic medical record. If you do not see the information that you expected, contact Release of Information in the Health Information Management department at [phone] for further assistance in locating additional records.[facility] Active Allergies and Adverse Reactions Allergen [...] Fall 01/25/2016 Parkinsonism (HCC) 11/16/2015 Peripheral neuropathy ([facility]) 11/16/2015 Orthostatic hypotension 11/16/2015 Most Recent Encounters [...]
--- OUTSIDE RECORDS SUMMARY | 2017-01-14 14:57 | XMS REPORT | Continuity of Care Document ---
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 Vp Security Name Role Phone [employer] Unavailable Unavailable Problems Problem Status Onset Date Classification Date Reported Comments Source Chronic ischemic heart disease, unspecified 01/28/2015 Diagnosis 02/01/2015 [facility] Chest pain (finding) Active Problem 03/24/2015 [facility] [place] Atherosclerosis of coronary artery (disorder) Active Problem 03/24/2015 [facility] [place] Medications Medication Details Route Status Patient Instructions Ordering Provider Order Date Source No Known Medications No known medications Active [facility] Allergies, Adverse Reactions, Alerts Substance Category Reaction Severity Reaction type Status Date Reported Comments Source Primidone Assertion made patient "spacey" & depressed Propensity to adverse reactions to drug [facility] topiramate Assertion "spacey " & depressed Propensity to adverse reactions to drug [facility]. Immunizations Immunization Date Given Site Status Last Updated Comments Source No data available for this section No data available for this section [facility]. Results Vital Signs Encounters Location Location Details Encounter Type Encounter Number Reason For Visit Attending Provider ADM Date DC Date Status Source [facility] [id number] Inpatient [id number] Eduardo Freedman 01/26/2015 01/28/2015 Active [facility] Cardiology Services Cancel/ No Show [id number] . [facility] 01/28/2015 01/27/2015 [facility] Cardiology [facility] Cardiology Services Clinic [id number] Arnoldo Katie 04/01/2015 [facility] Procedures Procedure Code Date Perfomer Comments Source LV cors c PTCA 01/27/2015 [facility] No data available for this section [facility] Cardiology [facility] bilat cataracts [facility]. microdiscectomy<sup>1</sup> 2012 [facility] prostate scraping<sup>2</sup> 2012 [facility] vasectomy [facility], [facility]. vitrectomy-eye surgery-left [facility], [facility]. Plan of Care Social History Assessment and Plan Family History Value Date Source Advance Directives Order Name Results Value Date Source
--- NOTE | 2017-01-14 15:04 | NUR ---
RADIOLOGY PT TO RADIOLOGY PER CART
--- NOTE | 2017-01-14 15:09 | ERPDOC ---
Departure Disposition Decision Date: January 14, 2017 Disposition Decision Time: 17:31 Disposition: 01 DISCHARGED HOME, SELF-CARE Impression Impression Impression: Primary Impression: Syncope and collapse Severity: Moderate Condition: Improved Seen By: Physician only Referrals: KVNG SOUZA MD (Family) 3 Days Patient Instructions: Syncope (ED) Problems/Meds/Labs Reviewed?: Yes Medications reviewed and manag: Yes Additional Instructions: You have passed out. We did not find a new cause for this today. Continue to take your medications to help with alertness and your other medications. Follow up with your doctor next week. Follow up care ordered?: Yes Mental Status: Alert, Oriented HPI - Syncope General Chief Complaint: Syncope Stated Complaint: PASSED OUT Time Seen by Provider: 14:49 Source: patient, family Exam Limitations: no limitations HPI - Syncope Initial Comments 76yo man was at the local car show today when he passed out. Pt has an extensive cardiac hx, is IDDM, has Parkinson's and spinal stenosis. Pt got out of his car at the local car show and immediately syncopized. Pt was 'goofy' for several minutes, despite having previously taking his meds for hypotension. Occurred At: park Onset: Rapid Duration: 1/2 hour Symptoms Prior to Episode: diaphoresis, lightheadedness, rapid heart beat Precipitating Factors: standing Loss of Consciousness: unsure Current Symptoms: back to normal Hx of Similar Symptoms: Yes Allergies: Coded Allergies: primidone (Verified Allergy, Unknown, 10/07/16) per H&P sulfamethoxazole (Verified Allergy, Unknown, CRITICALLY HIGH POTASSIUM, ) topiramate (Verified Allergy, Unknown, 10/07/16) per H&P trimethoprim (Verified Allergy, Unknown, CRITICALLY HIGH POTASSIUM, ) Past History Patient Medical History (1) Parkinson disease Patient Surgical History CABG x 5. Past Medical History Metabolic: diabetes, hypercholesterolemia, hypertension, hypothyroidism ENMT: other Cardiac: CAD, PR, other GI: GERD, constipation Male: BPH Neurological: other Musculoskeletal: osteoarthritis Surgical History General: EGD, back, colonoscopy, tonsils Cardiac: cardiac bypass, cardiac cath Family History Family PMH: FOUND: PR, diabetes Vaccines Hx Influenza Vaccination: Yes (06/2016) Hx Pneumococcal Vaccination: Yes (02/23, 07/26) Social History Does patient use chewing tobac: No Second Hand Exposure: No Substance Use Type: does not use Alcohol Intake: none Marital Status: Sexuality: female partner Housing: apartment Household Members: spouse Review of Systems Neurological General: syncope All other Systems All Other Systems: Reviewed and Negative Physical Exam General General Nourishment: well nourished, well developed, appears stated age, no acute distress, adult, obese General Body Habitus: well groomed Vitals and Pain Weight: Kilograms: Height (feet): 6 Height (inches): 0 Triage Pain Scale: RN VS reviewed by Provider: Yes Eyes (brief) Eyes Brief: found: EOMI, PERRL, not found: scleral icterus ENMT (brief) ENMT Brief: FOUND: TM clear, TM good light reflex, ear canals clear, mucosa moist, normal tonsils Neck (brief) Neck: FOUND: trachea midline, NOT FOUND: JVD, adenopathy, thyromegaly Respiratory (brief) Respiratory: FOUND: clear all villasenor, equal bilaterally, symmetrical, NOT FOUND : rales, wheezes Cardiovascular (brief) Cardiac: FOUND: regular rate, regular rhythm, NOT FOUND: click, gallop, murmur , pedal edema, peripheral edema, rub Capillary Refill: <2 sec Pulses: all distal extremities, equal, strong Abdomen (brief) Abdominal Brief: FOUND: bowel normo active x4, soft, NOT FOUND: distended, hepatosplenomegaly, pulsatile mass, tender Musculoskeletal (brief) Musculoskeletal Brief: NOT FOUND: deformity, loss of motion, spasm, tenderness Integumentary (brief) Integumentary Brief: FOUND: pink, warm Neurologic (brief) Neurological Brief: FOUND: CN w/o gross def to obs, DTR 2/4 all extremities, gait w/o gross def to obs, motor-no gross deficits, sensory-no gross deficits, NOT FOUND: Babinski Psychiatric (brief) Psychiatric Brief: FOUND: alert, normal affect, oriented Differential Diagnoses Differential Diagnoses Considering: Acute PR/Ischemia, Bradycardia, Cardiac Dysrhythmia, Delirium, Heat Stroke, Hypoglycemia, Long QT Syndrome, Medication Effect, Toxin, UTI, Vasovagal Reaction Progress Results/Orders Orders Procedure Category Date Status Time Iv Lock (Ed Only) EDM 01/14/17 Transmitted 14:49 Orthostatic Bp/Pulse EDM 01/14/17 Transmitted 14:49 Oxygen Administration EDM 01/14/17 Transmitted 14:49 Nothing By Mouth (Ed EDM 01/14/17 Transmitted Only) 14:49 Bgm (Ed) EDM 01/14/17 Transmitted 14:49 Cbc W/Auto LAB 01/14/17 Complete Diff-Reflex Manual 14:49 Cmp - Comprehensive LAB 01/14/17 Complete Metabolic 14:49 Troponin I W LAB 01/14/17 Complete Hemolysis Index 14:49 C-Reactive Protein - LAB 01/14/17 Complete CRP 14:49 Prolactin LAB 01/14/17 Complete 14:49 EKG EKG 01/14/17 Taken 14:49 Chest, Pa & Lateral RAD 01/14/17 Resulted 14:49 Normal Saline (Normal PHA 01/14/17 Complete Saline Iv) 14:49 UA, LAB 01/14/17 Complete Dip&Micro(Complete) & 17:03 Lab Results Laboratory Tests Test 01/14/17 14:49 01/14/17 15:30 01/14/17 17:03 White Blood Count 8.4T/MM3 Red Blood Count 4.04M/MM3 Hemoglobin 12.4GM/DL Hematocrit 37.3% Mean Corpuscular Volume 92.3UM3 Mean Corpuscular Hemoglobin 30.7UUG Mean Corpuscular Hemoglobin Concent 33.2GM/DL RDW Standard Deviation 41.8FL Platelet Count 202T/MM3 Mean Platelet Volume 9.8UM3 Immature Granulocyte % (Auto) 0.1% Neutrophils (%) (Auto) 63.4% Lymphocytes (%) (Auto) 24.0% Monocytes (%) (Auto) 9.8% Eosinophils (%) (Auto) 2.5% Basophils (%) (Auto) 0.2% Absolute Immature Granulocyte (auto 0.01T/MM3 Absolute Neutrophils (auto) 5.3T/MM3 Absolute Lymphocytes (auto) 2.0T/MM3 Absolute Monocytes (auto) 0.8T/MM3 Absolute Eosinophils (auto) 0.2T/MM3 Absolute Basophils (auto) 0.0T/MM3 Turbidity < 20 Sodium Level 143MEQ/L Potassium Level 4.3MEQ/L Chloride Level 102MEQ/L Carbon Dioxide Level 27MEQ/L Anion Gap 14MEQ/L Blood Urea Nitrogen 33.0MG/DL Creatinine 1.1MG/DL Glomerular Filtration Rate Calc 65 BUN/Creatinine Ratio 30RATIO Glucose Level 148MG/DL Calculated Osmolality 285MOSM/KG Calcium Level 9.5MG/DL Total Bilirubin 0.50MG/DL Icterus Index < 2 Aspartate Amino Transf (AST/SGOT) 22U/L Alanine Aminotransferase (ALT/SGPT) 34U/L Alkaline Phosphatase 92U/L Troponin I < 0.012ng/ml C-Reactive Protein < 5.0MG/L Total Protein 6.6G/DL Albumin 4.0G/DL Globulin 2.6G/DL Albumin/Globulin Ratio 1.5RATIO Prolactin 14.4NG/ML Chemistry Specimen Hemolysis < 15 Urine Collection Type Cleancatch-midstream Urine Color Yellow Urine Turbidity Clear Urine pH 5.0 Urine Specific [place] 1.010 Urine Protein Negative Urine Glucose (UA) Negative Urine Ketones Negative Urine Blood 2+ Urine Nitrite Negative Urine Bilirubin Negative Urine Urobilinogen 0.2EU/DL Urine Leukocyte Esterase Negative Urine RBC 0-1/HPF Urine WBC None seen/HPF Urine Amorphous Urates Few Urine Bacteria Trace Urine Culture Indicated Cult not indicated Medications Current ED Medications Sodium Chloride (Normal Saline IV) 1,000 ml @ 0 mls/hr Q0M ONCE IV Last administered on 01/14/17t 15:25; Start 01/14/17 at 14:49; Stop 01/14/17 at 14:50; Status DC Progress Progress 76yo man without any acute pathology to explain his syncopal episode. Pt has known syncopal episodes and takes meds to maintain alertness and BP. Discussed lack of definitive dx or s/s of emergent pathology. Pt voiced understanding of lack of dx and need for f/u with PCM. Good RTC precautions given. EKG EKG : Rate: 60-100 Rhythm: sinus [place]: normal QRS: normal Intervals: normal ST/T: non-specific changes Interpreted by: signing physician Xray Xray : Xray: CXR PA/Lat Interpretation: Normal, Interpreted by RADHA Marquez DO January 14, 2017 15:09
--- NOTE | 2017-01-14 15:20 | NUR ---
EKG EKG TAKEN AND GIVEN TO DR HUA
[2017-01-14 15:28] LABS: BASOPHILS % (AUTO) 0.2 % (0-2); EOSINOPHILS # (AUTO) 0.2 T/MM3 (0-0.5); EOSINOPHILS % (AUTO) 2.5 % (0-4); HCT - HEMATOCRIT 37.3 % (41-53); HGB - HEMOGLOBIN 12.4 GM/DL (13.5-17.5); IMMATURE GRANULOCYTE # (AUTO) 0.01 T/MM3 (0.00-0.03); IMMATURE GRANULOCYTE % (AUTO) 0.1 % (0.0-0.5); MEAN CORPUSCULAR HGB 30.7 UUG (26-34); MEAN CORPUSCULAR HGB CONC(MCHC 33.2 GM/DL (31-37); MEAN CORPUSCULAR VOLUME 92.3 UM3 (80-100); MEAN PLATELET VOLUME 9.8 UM3 (9.4-12.4); MONOCYTES # (AUTO) 0.8 T/MM3 (0-0.8); MONOCYTES % (AUTO) 9.8 % (0-9.0); NEUTROPHILS #(AUTO)-ABSOLUTE 5.3 T/MM3 (1.8-7.7); NEUTROPHILS % (AUTO) 63.4 % (33-66); RED BLOOD COUNT 4.04 M/MM3 (4.50-5.90); WBC - WHITE BLOOD COUNT 8.4 T/MM3 (4.5-11.0)
--- NOTE | 2017-01-14 15:30 | NUR ---
IV IVL STARTED AND BLOOD COLLECTED AND SENT WITH LAB
[2017-01-14 15:46] LABS: ALBUMIN/GLOBULIN RATIO 1.5 RATIO (1.1-2.2); ALKALINE PHOSPHATASE 92 U/L (38-126); ALT (SGPT) 34 U/L (21-72); ANION GAP 14 MEQ/L (5-15); AST (SGOT) 22 U/L (17-59); BUN/CREATININE RATIO 30 RATIO (6-26); C-REACTIVE PROTEIN < 5.0 MG/L (0-9); CALCIUM 9.5 MG/DL (8.4-10.2); CHLORIDE 102 MEQ/L (98-107); CO2 - CARBON DIOXIDE 27 MEQ/L (22-30); CREATININE 1.1 MG/DL (0.8-1.5); GLOMERULAR FILTRATION RATE 65; GLUCOSE 148 MG/DL (75-110); POTASSIUM 4.3 MEQ/L (3.6-5); SODIUM 143 MEQ/L (134-144); TOTAL PROTEIN 6.6 G/DL (6.3-8.2)
[2017-01-14 16:00] LABS: PROLACTIN 14.4 NG/ML
[2017-01-14] MEDS ORDERED: GABA-336 PO (16:15)
[2017-01-14] MEDS ORDERED: NITR100C4 PO (16:15)
--- NOTE | 2017-01-14 16:30 | NUR ---
IVF IVF INFUSED AT THIS TIME
--- NOTE | 2017-01-14 17:00 | NUR ---
CATH 16FR COUDE PLACED AND UA COLLECTED. 350CC CLEAR JYOTI URINE DRAINED
[2017-01-14 17:28] LABS: BLOOD, URINE 2+ (NEGATIVE); COLOR,URINE YELLOW (YELLOW); LEUKOCYTE ESTERASE ,URINE NEGATIVE (NEGATIVE); NITRITE,URINE NEGATIVE (NEGATIVE); UROBILINOGEN,URINE 0.2 EU/DL (NORMAL)
[2017-01-14 17:40] LABS: BACTERIA,URINE TRACE (NEGATIVE); RBC,URINE 0-1 /HPF (0-3); WBC,URINE NONE SEEN /HPF (0-5)
--- NOTE | 2017-01-14 17:45 | NUR ---
STATUS PT REPORTS HE IS FEELING BETTER AFTER THE IVF
--- NOTE | 2017-01-14 18:20 | NUR ---
IVL IVL DC'D WITH CATH INTACT
[2017-01-14 18:26] VITALS: BP 142/65; PULSE 74; RESP 14; TEMP 98.3; O2SAT 97
--- NOTE | 2017-01-14 18:26 | NUR ---
DISMISSAL DISMISSAL INSTRUCTIONS TO PT AND WITHOUT FURTHER QUESTIONS. PT LEFT DEPARTMENT PER WC WITH
--- NOTE | 2017-01-15 08:46 | DI ---
INDICATION: ITS.REASON: syncope PROCEDURE: CHEST 2-VIEWS UPRIGHT (PA \T\ LAT) Encounter: Initial COMPARISON: October 11, 2016 FINDINGS: The lungs are clear without evidence of focal abnormal airspace opacity. There is no pleural effusion or pneumothorax. Prior pleural effusions and basilar airspace disease has resolved. The heart size, mediastinal contours and pulmonary vascularity are unchanged with poststernotomy changes. IMPRESSION: No acute cardiopulmonary disease. .
== END 2017-01-14 18:26 | disposition home or self-care (01) ==
LOC: ED 14:28
DX: R55 Syncope and collapse (principal); I10 Essential (primary) hypertension; E78.00 Pure hypercholesterolemia, unspecified; E11.9 Type 2 diabetes mellitus without complications; Z79.4 Long term (current) use of insulin
CPT/HCPCS: 71020; 80053; 81001; 84146; 84484; 85025; 86140; 93005; 96360; 99284; J7030

== ENCOUNTER → 2017-01-17 | Outpatient (CLI) | payer MEDICARE, OTHER ==
[~2017-01-17] MED LIST changes: +GABA-336 PO; +NITR100C4 PO
[2017-01-17 14:10] LABS: ALBUMIN 4.1 G/DL (3.5-5.0); ANION GAP 12 MEQ/L (5-15); BUN/CREATININE RATIO 27 RATIO (6-26); CALCIUM 9.8 MG/DL (8.4-10.2); CHLORIDE 104 MEQ/L (98-107); CO2 - CARBON DIOXIDE 29 MEQ/L (22-30); GLOMERULAR FILTRATION RATE 72; GLUCOSE 93 MG/DL (75-110); MAGNESIUM 2.2 MG/DL (1.6-2.3); POTASSIUM 4.6 MEQ/L (3.6-5); SODIUM 145 MEQ/L (134-144); URIC ACID 4.3 MG/DL (3.5-8.5)
== END ==
LOC: LAB 13:26
PROVIDERS: ATTEND Internal Medicine Nephrology
DX: E55.9 Vitamin D deficiency, unspecified (principal); E87.5 Hyperkalemia; I10 Essential (primary) hypertension; I95.1 Orthostatic hypotension
CPT/HCPCS: 36415; 80069; 82306; 83735; 83970; 84550

== ENCOUNTER 2017-03-07 01:08 | Inpatient (IN) ==
[~2017-03-07 01:08] MED LIST changes: -ALPH600C7 PO; -ASCO500T10 PO; -ASPI-557 PO; -ATOR40TA64 PO; -CALC1CAP22 PO; -CALC625T PO; -CARB1TAB20 PO; +COENZYME Q-10 200mg TABLET PO SCH; -CRAN500T2 PO; -CYAN250010 PO; -CYAN25002 PO; -DOCU-168 PO; -DULO60CA56 PO; -FISH1CAP59 PO; -FLUD0.1T PO; -GABA-336 PO; -INSU100V SQ; -INSU200I4 SQ; -LEVO50TA11 PO; -MAGNESIUM THREONATE PO; -MELA5TAB14 PO; -MIDO5TAB PO; -NITR100C4 PO; -OMEP20CA10 PO; -POLY119P3 PO; -UBID100C10 PO; -[UNRECOGNIZED DRUG - CODE] PO; -[UNRECOGNIZED DRUG - CODE] PO
[2017-03-07] MEDS ORDERED: CEFEPIME 1 GM in NS 100 ML IV ONE (01:17)
--- NOTE | 2017-03-07 01:45 | Emergency Department Report ---
Fever HPI - General Chief Complaint: Fever Stated Complaint: Fever Time Seen by Provider: 03/07/17 01:17 Source: patient, EMS Mode of arrival: EMS Limitations: no limitations - History of Present Illness HPI Narrative: 76yo man is presented to the ER by EMS for a fever. Pt was seen by his PCM yesterday and dx'ed with a UTI. He was given rocephin in clinic and d/c'ed with an rx for macrobid. Overnight, pt became febrile (101 in EMS) and had chills. Pt does not feel well, so they called EMS. Pt was given tylenol en route to the ER. MD complaint: fever Onset (ago): hour(s) Maximum Temperature: 101 F Temperature Source: oral Associated symptoms: chills, rigors Relieving factors: acetaminophen Exacerbating factors: nothing Treatments prior to arrival fever: acetaminophen - Related Data Home Medications Medication Instructions Recorded Confirmed Cyanocobalamin (Vitamin B-12) 2,500 mcg PO SuMoThFr #0 10/11/16 03/07/17 [Vitamin B12] Insulin Lispro [HumaLOG] 7 unit SQ WL #0 10/11/16 03/07/17 Insulin Lispro [HumaLOG] 8 unit SQ WS #0 10/11/16 03/07/17 Alpha Lipoic Acid 600 mg PO 3XW #0 11/25/16 03/07/17 Ascorbic Acid 500 mg PO DAILY #0 11/25/16 03/07/17 Aspirin [Aspir 81] 81 mg PO DAILY #0 11/25/16 03/07/17 Atorvastatin Calcium 40 mg PO HS #0 11/25/16 03/07/17 Calcium Carbonate/Vitamin D3 2 cap PO BID #0 11/25/16 03/07/17 [Calcium 600 + Vit D 400 Softgl] Calcium Polycarbophil [Fibercon] 625 mg PO DAILY #0 11/25/16 03/07/17 Carbidopa/Levodopa 1.5 tab PO QID/E #0 11/25/16 03/07/17 [Carbidopa-Levodopa 25-100 Tab] Cranberry Fruit Extract [Cranberry] 4,500 mg PO DAILY #0 11/25/16 03/07/17 Docusate Sodium [Colace] 100 cap PO BID PRN #0 11/25/16 03/07/17 Duloxetine HCl 60 mg PO DAILY #0 11/25/16 03/07/17 Fludrocortisone [Florinef] 0.1 mg PO DAILY #0 11/25/16 03/07/17 Insulin Degludec [Tresiba 32 unit SQ HS #0 11/25/16 03/07/17 Flextouch U-200] Insulin Lispro [HumaLOG] 9 unit SQ WB #0 11/25/16 03/07/17 Levothyroxine Sodium 50 mcg PO MoTuWeThFrSa@ACB #0 11/25/16 03/07/17 Levothyroxine Sodium 100 mcg PO Medina@ACB #0 11/25/16 03/07/17 Melatonin 5 - 10 mg PO HS PRN #0 11/25/16 03/03/17 Midodrine HCl 10 mg PO TID #0 11/25/16 03/07/17 Omeprazole 20 mg PO ACB #0 11/25/16 03/07/17 Polyethylene Glycol 3350 [Miralax] 17 g PO DAILY PRN #0 11/25/16 03/07/17 Ubidecarenone [Coq-10] 100 mg PO 1 WEEK #0 11/25/16 03/07/17 Vitamin B Complex [Balance B-50] 1 tab PO BID #0 11/25/16 03/07/17 Gabapentin 100 mg PO BID #0 01/14/17 03/07/17 Clobetasol 0.05% Cream [TEMOVATE 1 applic TOP DAILY PRN 03/03/17 03/07/17 Cream] Fleet Phospho-Soda Enema [Fleet 1 enema RECTALLY DAILY PRN 03/03/17 03/07/17 Enema] Magnesium Oxide [Magnesium] 500 mg PO HS 03/03/17 03/07/17 Linaclotide [Linzess] 145 mcg PO DAILY 03/07/17 03/07/17 Allergies Allergy/AdvReac Type Severity Reaction Status Date / Time primidone Allergy Unknown Verified 03/07/17 01:42 sulfamethoxazole Allergy Unknown CRITICALLY Verified 03/07/17 01:42 HIGH POTASSIUM topiramate Allergy Unknown Verified 03/07/17 01:42 trimethoprim Allergy Unknown CRITICALLY Verified 03/07/17 01:42 HIGH POTASSIUM Review of Systems All systems: reviewed and negative except as stated Constitutional: Reports: fever, chills, weakness Genitourinary: Reports: other (UTI) PFSH Patient Stated Medical History Parkinson's Disease Yes Cataracts Yes Coronary Artery Disease Yes Hypertension Yes Myocardial Infarction Yes Other Cardiology Yes: 5 BYPASS Diabetes Mellitus Type 1 Yes Gastroesophageal Reflux Yes Disease Other GI Yes: Constipation Hx Benign Prostatic Yes Hyperplasia Hx Urinary Tract Infection Yes Cellulitis Yes Sepsis Yes: UTI Depression Yes Surgical History: CABG. Right Hip - Social History Smoking status: Never smoker Physical Exam - Limitations Limitations: no limitations - General General appearance: alert, in no apparent distress, obese - Normal Exams: Head:: Normocephalic without trauma Eyes:: Pupils are PERRLA w/ EOMI, No scleral icterus, irritation, or foreign bodies noted ENMT:: No facial trauma, nasal exudates, pharyngeal erythema, or exudates are noted Neck:: Full range of motion, without adenopathy, JVD, bruits or thyromegaly Chest/Respirations:: Clear all villasenor, with good airflow, and symmetry bilaterally Abdomen:: Bowel sounds positive, soft, non-tender, non-distended, no hepatosplenomegaly, masses or bruits noted Lymphatic:: No lymphadenopathy, or lymphedema noted Musculoskeletal:: No tenderness, or deformity noted, good range of motion, all extremities Integumentary:: No rashes, hives, or bruising noted, hair and nails, without abnormality Neurological:: Patient is alert, and oriented, cranial nerves, motor/sensory/ cerebellar, exams w/o gross deficits, to observation Psychiatric:: Patient exhibits, appropriate attention, emotion and affect - Cardiovascular Cardiovascular exam: Present: normal rhythm, tachycardia, normal heart sounds, + S1, +S2. Absent: regular rate, rubs, gallop, clicks, +S3, +S4 Course - Consultations Consultation #1: Demario Telemed: Will accept for admission Time: 02:15 Vital Signs Temperature 99.6 F 03/07/17 01:08 Pulse Rate 117 H 03/07/17 01:08 Respiratory Rate 20 03/07/17 01:08 Blood Pressure 151/65 H 03/07/17 01:08 Pulse Oximetry 96 03/07/17 01:08 Temperature 97.4 F 03/07/17 16:00 Pulse Rate 80 03/07/17 16:00 Respiratory Rate 20 03/07/17 16:00 Blood Pressure 137/67 03/07/17 16:00 Pulse Oximetry 98 03/07/17 16:00 Fever - Differential Diagnosis Likely: pyelonephritis (UTI; ), viral infection, sepsis - Medical Records Attestation: I reviewed the patient's medical records. - Lab Data Attestation: I reviewed the patient's lab results. Result diagrams: 03/07/17 01:22 03/07/17 01:22 Lab Results 03/07/17 03/07/17 03/07/17 Range/Units 01:22 01:22 01:22 WBC 11.3 H (4.5-11.0) T/MM3 RBC 4.02 L (4.50-5.90) M/MM3 Hgb 12.5 L (13.5-17.5) GM/DL Hct 38.0 L (41-53) % MCV 94.5 (80-100) UM3 MCH 31.1 (26-34) UUG MCHC 32.9 (31-37) GM/DL RDW Std Deviation 42.3 (36.9-50.2) FL Plt Count 209 (130-400) T/MM3 MPV 10.0 (9.4-12.4) UM3 Immature Gran % (Auto) 0.2 (0.0-0.5) % Neut % (Auto) 79.5 H (33-66) % Lymph % (Auto) 8.9 L (23-45) % [place] % (Auto) 10.6 H (0-9.0) % Eos % (Auto) 0.6 (0-4) % Baso % (Auto) 0.2 (0-2) % Neut # 9.0 H (1.8-7.7) T/MM3 Lymph # 1.0 (1-4.8) T/MM3 [place] # 1.2 H (0-0.8) T/MM3 Eos # 0.1 (0-0.5) T/MM3 Baso # 0.0 (0-0.2) T/MM3 Abs Immat Gran (auto) 0.02 (0.00-0.03) T/MM3 Turbidity < 20 (0-20) Sodium 142 (134-144) MEQ/L Potassium 4.5 (3.6-5) MEQ/L Chloride 102 (98-107) MEQ/L Carbon Dioxide 26 (22-30) MEQ/L Anion Gap 14 (5-15) MEQ/L BUN 42.0 H (9-20) MG/DL Creatinine 1.3 (0.8-1.5) MG/DL GFR Calculation 53 BUN/Creatinine Ratio 32 H (6-26) RATIO Glucose 209 H (75-110) MG/DL Glucometer (65-110) mg/dL Calculated Osmolality 290 H (261-280) MOSM/KG Calcium 9.8 (8.4-10.2) MG/DL Icterus Index < 2 (0-7) Troponin I < 0.012 (0-0.12) ng/ml Plasma Lactate 1.4 (0.6-2.2) MMOL/L Specimen Hemolysis < 15 < 15 (0-25) Ur Collection Type Urine Color (YELLOW) Urine Clarity Urine pH (5.0-8.0) Ur Specific [place] (1.015-1.025) Urine Protein (NEGATIVE) Urine Glucose (UA) (NEGATIVE) Urine Ketones (NEGATIVE) Urine Occult Blood (NEGATIVE) Urine Nitrate (NEGATIVE) Urine Bilirubin (NEGATIVE) Urine Urobilinogen (NORMAL) EU/DL Ur Leukocyte Esterase (NEGATIVE) Urine RBC (0-3) /HPF Urine WBC (0-5) /HPF Urine Bacteria (NEGATIVE) Ur Culture Indicated? 03/07/17 03/07/17 03/07/17 Range/Units 02:38 05:57 06:13 WBC (4.5-11.0) T/MM3 RBC (4.50-5.90) M/MM3 Hgb (13.5-17.5) GM/DL Hct (41-53) % MCV (80-100) UM3 MCH (26-34) UUG MCHC (31-37) GM/DL RDW Std Deviation (36.9-50.2) FL Plt Count (130-400) T/MM3 MPV (9.4-12.4) UM3 Immature Gran % (Auto) (0.0-0.5) % Neut % (Auto) (33-66) % Lymph % (Auto) (23-45) % [place] % (Auto) (0-9.0) % Eos % (Auto) (0-4) % Baso % (Auto) (0-2) % Neut # (1.8-7.7) T/MM3 Lymph # (1-4.8) T/MM3 [place] # (0-0.8) T/MM3 Eos # (0-0.5) T/MM3 Baso # (0-0.2) T/MM3 Abs Immat Gran (auto) (0.00-0.03) T/MM3 Turbidity (0-20) Sodium (134-144) MEQ/L Potassium (3.6-5) MEQ/L Chloride (98-107) MEQ/L Carbon Dioxide (22-30) MEQ/L Anion Gap (5-15) MEQ/L BUN (9-20) MG/DL Creatinine (0.8-1.5) MG/DL GFR Calculation BUN/Creatinine Ratio (6-26) RATIO Glucose (75-110) MG/DL Glucometer 255 (65-110) mg/dL Calculated Osmolality (261-280) MOSM/KG Calcium (8.4-10.2) MG/DL Icterus Index (0-7) Troponin I (0-0.12) ng/ml Plasma Lactate 0.9 (0.6-2.2) MMOL/L Specimen Hemolysis (0-25) Ur Collection Type Urine, clean catch Urine Color Yellow (YELLOW) Urine Clarity Sl cloudy Urine pH 5.5 (5.0-8.0) Ur Specific [place] 1.010 L (1.015-1.025) Urine Protein 2+ A (NEGATIVE) Urine Glucose (UA) Negative (NEGATIVE) Urine Ketones Negative (NEGATIVE) Urine Occult Blood Trace-lysed (NEGATIVE) Urine Nitrate Negative (NEGATIVE) Urine Bilirubin Negative (NEGATIVE) Urine Urobilinogen 0.2 (NORMAL) EU/DL Ur Leukocyte Esterase 1+ A (NEGATIVE) Urine RBC 1-3 (0-3) /HPF Urine WBC 10-20 H (0-5) /HPF Urine Bacteria 2+ H (NEGATIVE) Ur Culture Indicated? Cult reflexed &setup 03/07/17 Range/Units 10:57 WBC (4.5-11.0) T/MM3 RBC (4.50-5.90) M/MM3 Hgb (13.5-17.5) GM/DL Hct (41-53) % MCV (80-100) UM3 MCH (26-34) UUG MCHC (31-37) GM/DL RDW Std Deviation (36.9-50.2) FL Plt Count (130-400) T/MM3 MPV (9.4-12.4) UM3 Immature Gran % (Auto) (0.0-0.5) % Neut % (Auto) (33-66) % Lymph % (Auto) (23-45) % [place] % (Auto) (0-9.0) % Eos % (Auto) (0-4) % Baso % (Auto) (0-2) % Neut # (1.8-7.7) T/MM3 Lymph # (1-4.8) T/MM3 [place] # (0-0.8) T/MM3 Eos # (0-0.5) T/MM3 Baso # (0-0.2) T/MM3 Abs Immat Gran (auto) (0.00-0.03) T/MM3 Turbidity (0-20) Sodium (134-144) MEQ/L Potassium (3.6-5) MEQ/L Chloride (98-107) MEQ/L Carbon Dioxide (22-30) MEQ/L Anion Gap (5-15) MEQ/L BUN (9-20) MG/DL Creatinine (0.8-1.5) MG/DL GFR Calculation BUN/Creatinine Ratio (6-26) RATIO Glucose (75-110) MG/DL Glucometer 353 (65-110) mg/dL Calculated Osmolality (261-280) MOSM/KG Calcium (8.4-10.2) MG/DL Icterus Index (0-7) Troponin I (0-0.12) ng/ml Plasma Lactate (0.6-2.2) MMOL/L Specimen Hemolysis (0-25) Ur Collection Type Urine Color (YELLOW) Urine Clarity Urine pH (5.0-8.0) Ur Specific [place] (1.015-1.025) Urine Protein (NEGATIVE) Urine Glucose (UA) (NEGATIVE) Urine Ketones (NEGATIVE) Urine Occult Blood (NEGATIVE) Urine Nitrate (NEGATIVE) Urine Bilirubin (NEGATIVE) Urine Urobilinogen (NORMAL) EU/DL Ur Leukocyte Esterase (NEGATIVE) Urine RBC (0-3) /HPF Urine WBC (0-5) /HPF Urine Bacteria (NEGATIVE) Ur Culture Indicated? - Radiology Data Attestation: I reviewed the patient's radiology results. CXR: No acute pathology. - EKG Data EKG #1 EKG attestation: Yes: I reviewed and interpreted this EKG. EKG results narrative: EKG INTERPRETATION: RHYTHM: SINUS TACHYCARDIA VENTRICULAR RATE: 114 BPM ND INTERVAL: 172 MS AND NORMAL QRS DURATION: 81 MS AND NORMAL QT/QTC: 317/384 MS AND NORMAL AXIS: -3 AND NORMAL P WAVES: NORMAL T WAVES: NORMAL ST SEGMENT: NORMAL OTHER: INTERPRETATION: THIS IS AN ABNORMAL EKG. Disposition Clinical Impression: Urinary tract infection Qualifiers: Urinary tract infection type: acute pyelonephritis Qualified Code(s): N10 - Acute pyelonephritis Disposition: 02 To [facility] Condition: Improved Time of Disposition: 02:15 - Seen By: physician
[2017-03-07] MEDS ORDERED: NS 1,000 ML IV SCH (03:45)
[2017-03-07 04:08] VITALS: BMI 27.0
[2017-03-07] MEDS: SALINE FLUSH 10ml SYRINGE IVF PRN (04:29)
--- NOTE | 2017-03-07 04:55 | History & Physical Report ---
History of Present Illness Date: 03/07/17 Chief complaint: fevers, urinary retention HPI: 76 yo wiht DM, CAD, and progressive Parkinsons developed abdominal discomfort and fevers 2 days ago. He went to his PCP, Dr. Sharpe and was noted to have a UTI, he was given IM Rocephin and macrobid PO. He then went home but started having worsening fevers this afternoon of 101 and thus called 911 for EMS to bring him to the ER. He reports chronic problems with urinary retention and has had to straight cath himself in the past, has appt. with urology in the near future. Review of Systems - Constitutional Constitutional: Present: chills, fatigue, fever(s) - EENMT Balance: Absent: ataxia - Cardiovascular Cardiovascular: Absent: chest pain, palpitations, syncope, dyspnea on exertion - Respiratory Respiratory: Absent: cough, dyspnea - Gastrointestinal Gastrointestinal: Present: nausea. Absent: vomiting - Genitourinary Genitourinary: Present: urinary hesitancy, urinary incontinence, urinary urgency. Absent: dysuria, flank pain - Neurological Neurological: Present: abnormal gait - Psychiatric Psychiatric: Present: as per HPI PFSH CAD, DM X 40 years, [place], stents placed in 2004, HTN, parkinson's Surgical History: CABG. Right Hip Family History: CAD, HTN - Social History Smoking status: Never smoker Substance use type: does not use Alcohol intake frequency: does not drink Household members: spouse Current occupational status: retired Medications Home Medications Medication Instructions Recorded Confirmed Type Cyanocobalamin (Vitamin B-12) 2,500 mcg PO SuMoThFr #0 10/11/16 03/07/17 History [Vitamin B12] Insulin Lispro [HumaLOG] 7 unit SQ WL #0 10/11/16 03/07/17 History Insulin Lispro [HumaLOG] 8 unit SQ WS #0 10/11/16 03/07/17 History Alpha Lipoic Acid 600 mg PO 3XW #0 11/25/16 03/07/17 History Ascorbic Acid 500 mg PO DAILY #0 11/25/16 03/07/17 History Aspirin [Aspir 81] 81 mg PO DAILY #0 11/25/16 03/07/17 History Atorvastatin Calcium 40 mg PO HS #0 11/25/16 03/07/17 History Calcium Carbonate/Vitamin D3 2 cap PO BID #0 11/25/16 03/07/17 History [Calcium 600 + Vit D 400 Softgl] Calcium Polycarbophil [Fibercon] 625 mg PO DAILY #0 11/25/16 03/07/17 History Carbidopa/Levodopa 1.5 tab PO QID/E #0 11/25/16 03/07/17 History [Carbidopa-Levodopa 25-100 Tab] Cranberry Fruit Extract [Cranberry] 4,500 mg PO DAILY #0 11/25/16 03/07/17 History Docusate Sodium [Colace] 100 cap PO BID PRN #0 11/25/16 03/07/17 History Duloxetine HCl 60 mg PO DAILY #0 11/25/16 03/07/17 History Fludrocortisone [Florinef] 0.1 mg PO DAILY #0 11/25/16 03/07/17 History Insulin Degludec [Tresiba 32 unit SQ HS #0 11/25/16 03/07/17 History Flextouch U-200] Insulin Lispro [HumaLOG] 9 unit SQ WB #0 11/25/16 03/07/17 History Levothyroxine Sodium 50 mcg PO MoTuWeThFrSa@ACB #0 11/25/16 03/07/17 History Levothyroxine Sodium 100 mcg PO Medina@ACB #0 11/25/16 03/07/17 History Melatonin 5 - 10 mg PO HS PRN #0 11/25/16 03/03/17 History Midodrine HCl 10 mg PO TID #0 11/25/16 03/07/17 History Omeprazole 20 mg PO ACB #0 11/25/16 03/07/17 History Polyethylene Glycol 3350 [Miralax] 17 g PO DAILY PRN #0 11/25/16 03/07/17 History Ubidecarenone [Coq-10] 100 mg PO 1 WEEK #0 11/25/16 03/07/17 History Vitamin B Complex [Balance B-50] 1 tab PO BID #0 11/25/16 03/07/17 History Gabapentin 100 mg PO BID #0 01/14/17 03/07/17 History Clobetasol 0.05% Cream [TEMOVATE 1 applic TOP DAILY PRN 03/03/17 03/07/17 History Cream] Fleet Phospho-Soda Enema [Fleet 1 enema RECTALLY DAILY PRN 03/03/17 03/07/17 History Enema] Magnesium Oxide [Magnesium] 500 mg PO HS 03/03/17 03/07/17 History Allergies Allergy/AdvReac Type Severity Reaction Status Date / Time primidone Allergy Unknown Verified 03/07/17 01:42 sulfamethoxazole Allergy Unknown CRITICALLY Verified 03/07/17 01:42 HIGH POTASSIUM topiramate Allergy Unknown Verified 03/07/17 01:42 trimethoprim Allergy Unknown CRITICALLY Verified 03/07/17 01:42 HIGH POTASSIUM Exam Vital Signs: Temperature 99.4 F 03/07/17 03:52 Pulse Rate 105 H 03/07/17 03:52 Respiratory Rate 22 03/07/17 03:52 Blood Pressure 145/66 H 03/07/17 03:52 Pulse Oximetry 93 03/07/17 03:52 Oxygen Delivery Method Room Air Height: 1.8 m Weight: 87.9 kg Body Mass Index: 27.0 - Constitutional Present: no acute distress - Routine HEENT Exam ENT: Present: mucous membranes moist - Routine Neck Exam Present: supple - Routine Respiratory Exam Present: CTA bilaterally, rales - Routine Cardiovascular Exam Present: RRR, no murmur - Routine Abdominal Exam Present: soft, normoactive bowel sounds, non distended, non tender - Routine Extremities Exam Present: no edema, non tender - Routine Back/Spine/Pelvis Exam Back/Spine: Absent: CVA tenderness Results - Labs CBC & Chem 7: 03/07/17 01:22 03/07/17 01:22 Assessment and Plan (1) Urinary tract infection Current visit: Yes Status: Acute 03/07/17 05:00 since he only had one dose and not clear if this really is resistance or not long enough time to resolve issue, will start rocephin IV Q24, cultures pending. symptomatic management (2) Urinary retention Current visit: Yes Status: Acute 03/07/17 04:59 might need to straight cath, outpt urology appt. start flomax, BVI prn, (3) Parkinson disease, symptomatic Current visit: Yes Status: Acute 03/07/17 05:02 continue home Sinemet, consider PT.OT, (4) CAD (coronary artery disease) Current visit: Yes Status: Acute (5) HTN (hypertension) Current visit: Yes Status: Acute Hospital Course Summary Disclaimer: The visit summary below is not to be considered part of the above Progress Note.
[2017-03-07] MEDS: OMEPRAZOLE 20 MG CAPSULE PO SCH (05:46)
[2017-03-07] MEDS: LEVOTHYROXINE 50 MCG TABLET PO SCH (05:46)
--- NOTE | 2017-03-07 07:53 | XRay Report ---
Indication: Sepsis screen PROCEDURE: XR chest 1V: Encounter: Initial Comparison: January 14, 2017 FINDINGS: The lungs are clear. There is no abnormal airspace opacity, pleural effusion or pneumothorax identified. The heart size, pulmonary vasculature and mediastinum are stable. Poststernotomy changes. IMPRESSION: No acute cardiopulmonary abnormality. .
[2017-03-07] MEDS ORDERED: CEFTRIAXONE 1,000 MG in D5W 25 ML IV SCH (09:00)
[2017-03-07] MEDS: INSULIN ASPART 100unit/ml INJECTION SQ SCH ×3 (10:07→17:50)
[2017-03-07] MEDS: DULOXETINE 60 MG CAPSULE PO SCH (10:08)
[2017-03-07] MEDS: ASPIRIN *EC* 81 MG TABLET PO SCH (10:08)
[2017-03-07] MEDS: CEFTRIAXONE 1 G in NS 100 ML IV SCH (10:08)
[2017-03-07] MEDS: FLUDROCORTISONE 0.1 MG TABLET PO SCH (10:08)
[2017-03-07] MEDS: GABAPENTIN 100 MG CAPSULE PO SCH ×2 (10:08→21:00)
[2017-03-07] MEDS: NS 1,000 ML IV SCH ×3 (10:09→17:03)
[2017-03-07] MEDS ORDERED: DOCUSATE SODIUM 100 MG CAPSULE PO PRN (16:27)
[2017-03-07] MEDS ORDERED: FLEET PHOSPHO - SODA ENEMA 133ml PR PRN (16:27)
[2017-03-07] MEDS ORDERED: ONDANSETRON 4 MG/2 ML INJECTION IVP PRN (17:38)
[2017-03-07] MEDS: POLYETHYL GLYCOL 3350 17gm PACKET PO SCH (18:04)
[2017-03-07] MEDS: SENNA + DOCUSATE TABLET PO SCH (18:05)
[2017-03-07] MEDS: MIDODRINE 5 MG TABLET PO SCH (21:00)
[2017-03-07] MEDS: VITAMIN B COMPLEX + C TABLET PO SCH (21:00)
[2017-03-07] MEDS: TAMSULOSIN 0.4 MG CAPSULE PO SCH (21:01)
[2017-03-07] MEDS: ATORVASTATIN 40 MG TABLET PO SCH (21:01)
[2017-03-07] MEDS ORDERED: INSULIN GLARGINE 100unit/ml INJECTION SQ SCH (22:00)
[2017-03-08] MEDS: ACETAMINOPHEN 500 MG TABLET PO PRN (01:46)
[2017-03-08] MEDS: LEVOTHYROXINE 50 MCG TABLET PO SCH (06:03)
[2017-03-08] MEDS: OMEPRAZOLE 20 MG CAPSULE PO SCH (06:03)
[2017-03-08] MEDS: NS 1,000 ML IV SCH (06:05)
[2017-03-08] MEDS ORDERED: POLYETHYL GLYCOL 3350 17gm PACKET PO SCH (09:00)
[2017-03-08] MEDS: SENNA + DOCUSATE TABLET PO SCH ×2 (09:10→17:26)
[2017-03-08] MEDS: DULOXETINE 60 MG CAPSULE PO SCH (09:10)
[2017-03-08] MEDS: FLUDROCORTISONE 0.1 MG TABLET PO SCH (09:10)
[2017-03-08] MEDS: MAGNESIUM OXIDE 400 MG TABLET PO SCH (09:10)
[2017-03-08] MEDS: GABAPENTIN 100 MG CAPSULE PO SCH ×2 (09:10→21:05)
[2017-03-08] MEDS: CALCIUM POLYCARBOPHIL 625 MG TABLET PO SCH (09:10)
[2017-03-08] MEDS: LINACLOTIDE 145 MCG CAPSULE PO SCH (09:10)
[2017-03-08] MEDS: CALCIUM 600 + VIT D 400 TABLET PO SCH (09:11)
[2017-03-08] MEDS: INSULIN ASPART 100unit/ml INJECTION SQ SCH ×3 (09:11→17:36)
[2017-03-08] MEDS: CYANOCOBALAMIN (B-12) 500mcg TABLET PO SCH (09:11)
[2017-03-08] MEDS: MIDODRINE 5 MG TABLET PO SCH ×3 (09:11→21:05)
[2017-03-08] MEDS: ASCORBIC ACID 500 MG TABLET PO SCH (09:12)
[2017-03-08] MEDS: ASPIRIN *EC* 81 MG TABLET PO SCH (09:12)
[2017-03-08] MEDS: VITAMIN B COMPLEX + C TABLET PO SCH ×2 (09:12→21:04)
[2017-03-08] MEDS: CEFTRIAXONE 1 G in NS 100 ML IV SCH (09:12)
[2017-03-08] MEDS: POLYETHYL GLYCOL 3350 17gm PACKET PO SCH ×2 (09:19→17:26)
[2017-03-08] MEDS ORDERED: SODIUM CHLORIDE 5% EYE DROP 15ml EACH EYE PRN (09:24)
--- NOTE | 2017-03-08 09:26 | Consultation ---
DATE OF CONSULTATION 03/08/2017 DATE OF ADMISSION 03/07/2017 REASON FOR CONSULTATION Diabetes management. HISTORY OF PRESENT ILLNESS This 76-year-old male was admitted with confusion and was found to have a urinary tract infection on the day prior to my consult. He is feeling much better and no longer confused when I saw him. He has a history of type 1 diabetes mellitus that began in 1975. When I last saw him on 01/27/2017 we had adjusted his insulin downward because of some problems with hypoglycemia. His current insulin doses are Humalog 9 units q.a.m., 7 units q. lunch, 8 units q.p.m. and Tresiba 32 units q.h.s. Last night his bedtime glucose was 209, but fasting this morning was 66 after receiving 32 units of Lantus at bedtime last night. His hemoglobin A1c on admission was 7.1%. It is noted that the patient also has a history of hypothyroidism since November 2014 and takes levothyroxine 50 mcg Monday through Monday with two tablets on Sundays. He had been having some episodes of "falling out" which apparently have improved taking midodrine and fludrocortisone. ALLERGIES Primidone, sulfamethoxazole, topiramate, and trimethoprim. PAST MEDICAL HISTORY Type 1 diabetes mellitus. Hypertension. Hypercholesterolemia. Coronary artery disease including myocardial infarction. Gastroesophageal reflux disease. Colon polyps. Cataracts. Osteoarthritis. Essential tremor. He is status post vasectomy, vitrectomy, microdiscectomy, prostate surgery, angioplasty, CABG, and bladder surgery. FAMILY HISTORY Positive for heart disease, lung cancer and seizure disorder. SOCIAL HISTORY The patient does not smoke nor drink alcohol. REVIEW OF SYSTEMS Otherwise noncontributory. PHYSICAL EXAM Afebrile with stable vital signs. GENERAL: Well-developed, well-nourished elderly male--alert, oriented and in no acute distress. HEENT: Unremarkable. NECK: Without thyromegaly. No bruits. LUNGS: Clear. HEART: Regular rate and rhythm. ABDOMEN: Normal bowel sounds with no masses or tenderness. EXTREMITIES: Show trace left pedal edema. ASSESSMENT 1. Type 1 diabetes mellitus with hyperglycemia. His blood sugar is dropping too much overnight, so the basal insulin should be tapered. 2. Hypoglycemia, mild but undesirable in any event. 3. History of diabetic nephropathy with microalbuminuria. 4. Diabetic peripheral neuropathy, severe but without foot lesions. 5. Chronic long-term use of insulin. 6. Hypothyroidism, clinically euthyroid. RECOMMENDATIONS Reduce Lantus (and Tresiba when he returns home) from 32 to 30 units q.h.s. Thank you very much for asking me to see this nice gentleman in consultation. I will follow him along with you while he remains in the hospital. TEA
--- NOTE | 2017-03-08 09:53 | Progress Note ---
Subjective: F/U: Sepsis secondary to UTI, UTI with E coli Feeling much better today-more energetic. No f/c. Strength improving. Did have bowel movement yesterday. No ab pain or discomfort. Eating well. Breathing well without SOA, cough, congestion, or pain. No chest pressure, pain, or palpitations. Not having bladder pain or spasms from rand. Objective Vital signs: Temperature 96.7 F L 03/08/17 07:43 Pulse Rate 80 03/08/17 07:43 Respiratory Rate 16 03/08/17 07:43 Blood Pressure 120/65 03/08/17 07:43 Pulse Oximetry 94 03/08/17 07:43 Oxygen Delivery Method Room Air Rhythm: Normal Sinus Rhythm Weight: 89.6 kg - Constitutional Present: no acute distress, well nourished, well developed, cooperative - Routine HEENT Exam Head: Present: normocephalic, atraumatic Eye: Present: EOMI, PERRL. Absent: conjunctival icterus ENT: Present: mucous membranes moist, nares patent - Routine Respiratory Exam Present: decreased breath sounds, CTA bilaterally. Absent: respiratory distress , rhonchi, wheezes, crackles - Routine Cardiovascular Exam Present: RRR, S1, S2 - Routine Abdominal Exam Present: soft, normoactive bowel sounds, non distended, non tender. Absent: firm - Routine Extremities Exam Absent: cyanosis, clubbing - Routine Musculoskeletal Exam Musculoskeletal: Present: no clubbing or cyanosis, normal strength - Routine Skin Exam Present: intact, warm. Absent: mottling - Routine Neurological Exam Present: alert, oriented X3, CN II-XII intact, vision grossly intact, hearing grossly intact. Absent: motor deficit - Routine Psychiatric Exam Present: normal affect, normal thought process, cooperative, good insight, good judgment. Absent: agitated Results - Labs CBC & Chem 7: 03/08/17 05:25 03/08/17 05:25 Assessment and Plan (1) Sepsis secondary to UTI Current visit: Yes Status: Acute (2) Urinary tract infection Problem details: E coli Current visit: Yes Status: Acute 03/07/17 05:00 since he only had one dose and not clear if this really is resistance or not long enough time to resolve issue, will start rocephin IV Q24, cultures pending. symptomatic management (3) Leukocytosis Current visit: Yes Status: Resolved (4) Urinary retention Current visit: Yes Status: Acute 03/07/17 04:59 might need to straight cath, outpt urology appt. start flomax, BVI prn, (5) Constipation Current visit: Yes Status: Chronic (6) Parkinson disease, symptomatic Current visit: Yes Status: Chronic 03/07/17 05:02 continue home Sinemet, consider PT.OT, (7) CAD (coronary artery disease) Current visit: Yes Status: Chronic (8) HTN (hypertension) Current visit: Yes Status: Chronic (9) Type II diabetes mellitus Current visit: Yes Status: Chronic (10) Hypothyroidism Current visit: Yes Status: Chronic (11) Stage III chronic kidney disease Current visit: Yes Status: Chronic (12) Osteoarthritis Current visit: Yes Status: Chronic (13) Gait instability Current visit: Yes Status: Chronic (14) Bladder neck contracture Current visit: Yes Status: Chronic (15) Overweight (BMI 25.0-29.9) Current visit: Yes Status: Chronic DVT Prophylaxis: SCD's Resuscitation Status: Full Code Assessment and Plan: Continue with Rocephin for urinary coverage-patient responding clinically. E coli growing - check C/S. Will d/c IVF as BP stable and taking oral well. D/C Tele as in NSR and without active cardiac complaints. Continue with bowel motivation. PT/OT to see pt to help increase strength and functional status. Consult placed to Dr Moore for evaluation of his diabetes. Recheck CBC in am due to resolving sepsis. Check BMP in am secondary to medication use. Time spent with patient care greater than 35 minutes. Care plan discussed at length with patient. Sepsis Assessment - Evaluation Sepsis screening result: No Definite Risk Hospital Course Summary Disclaimer: The visit summary below is not to be considered part of the above Progress Note. Hospital Course: 03/07 Patient admitted overnight by telehospitalist secondary to UTI with f/c, temperature elevation, and leukocytosis. Rocephin started for urinary coverage and IVF of NS initiated at 100cc/hr for volume support. Patient is meeting sepsis criteria. Will place change admission status to inpatient admission as with sepsis marker positive would anticipate greater than 2 midnights of care needed. Continue Rocephin for urinary coverage. Continue IVF of NS, but decrease rate to 75 cc/hr. Rand placed due to urinary retention-start bladder retraining. PT/OT to maximize functional status due to his Parkinson's and acute debility from current illness. Work on bowel motivation. SCD for DVT prevention. Recheck CBC in am due to sepsis. Check BMP in am due to IVF use and medication. Check a1c due to elevated sugars; will consult with Dr Moore at family request. Full code. Care to return to Dr Sharpe at time of discharge from [facility] [place]. 03/08/17 Continue with Rocephin for urinary coverage-patient responding clinically. E coli growing - check C/S. Will d/c IVF as BP stable and taking oral well. D/C Tele as in NSR and without active cardiac complaints. Continue with bowel motivation. PT/OT to see pt to help increase strength and functional status. Consult placed to Dr Moore for evaluation of his diabetes. Recheck CBC in am due to resolving sepsis. Check BMP in am secondary to medication use.
[2017-03-08] MEDS: TAMSULOSIN 0.4 MG CAPSULE PO SCH (21:05)
[2017-03-08] MEDS: ATORVASTATIN 40 MG TABLET PO SCH (21:06)
[2017-03-08] MEDS: INSULIN GLARGINE 100unit/ml INJECTION SQ SCH (21:07)
[2017-03-09] MEDS: ACETAMINOPHEN 500 MG TABLET PO PRN ×2 (00:37→23:40)
[2017-03-09] MEDS: OMEPRAZOLE 20 MG CAPSULE PO SCH (06:19)
[2017-03-09] MEDS: LEVOTHYROXINE 50 MCG TABLET PO SCH (06:19)
--- NOTE | 2017-03-09 08:08 | Endocrinology Progress Note ---
Progress Note-A&P (1) Hypothyroidism Status: Chronic Assessment and plan: Clinically and chemically euthyroid. No changes needed. Current Visit: Yes (2) Type II diabetes mellitus Status: Chronic Assessment and plan: Fair control without hypoglycemia. May go home on current doses (using Tresiba at home instead of Lantus, but still 30 units). Current Visit: Yes - Time Spent With Patient Total time spent is greater than 50% in coordination of care (as documented) at patient's floor/unit and/or counseling patient: less than 15 minutes Subjective Principal diagnosis: Diabetes mellitus type 2 with hyperglycemia Interval history: No further hypoglycemia after reducing dose of bedtime Lantus. Exam Vital signs: Temperature 96.3 F L 03/09/17 07:58 Pulse Rate 80 03/09/17 07:58 Respiratory Rate 16 03/09/17 07:58 Blood Pressure 150/82 H 03/09/17 07:58 Pulse Oximetry 96 03/09/17 07:58 Oxygen Delivery Method Room Air - Constitutional no acute distress, well nourished, well developed - Routine HEENT Exam Head: Present: normocephalic, atraumatic Eye: Present: EOMI - Routine Neck Exam Absent: thyromegaly - Routine Respiratory Exam Absent: rales, wheezes - Routine Cardiovascular Exam Present: RRR. Absent: murmur - Routine Abdominal Exam Present: normoactive bowel sounds - Routine Extremities Exam Absent: edema - Routine Skin Exam Present: dry, warm - Routine Neurological Exam Present: alert, oriented X3 - Routine Psychiatric Exam Present: normal affect, normal thought process - Additional findings Additional findings: Laboratory Tests 03/08/17 03/08/17 03/08/17 06:39 11:29 16:59 Glucometer 82 108 84 03/08/17 20:58 Glucometer 166 - Urinary Catheter Management Straight Cath placed during this visit: yes, but has since been removed by the nurse Insertion date: 03/07/17 Insertion time: 02:05 Removal date: 03/07/17 Removal time: 02:15 Coude Cath placed during this visit: yes Urethral indwelling: No Insertion date: 03/07/17 Insertion time: 10:15
[2017-03-09] MEDS: LINACLOTIDE 145 MCG CAPSULE PO SCH (09:10)
[2017-03-09] MEDS: ASCORBIC ACID 500 MG TABLET PO SCH (09:11)
[2017-03-09] MEDS: ASPIRIN *EC* 81 MG TABLET PO SCH (09:11)
[2017-03-09] MEDS: POLYETHYL GLYCOL 3350 17gm PACKET PO SCH ×2 (09:11→17:18)
[2017-03-09] MEDS: SENNA + DOCUSATE TABLET PO SCH ×2 (09:12→17:18)
[2017-03-09] MEDS: CALCIUM 600 + VIT D 400 TABLET PO SCH (09:12)
[2017-03-09] MEDS: DULOXETINE 60 MG CAPSULE PO SCH (09:12)
[2017-03-09] MEDS: GABAPENTIN 100 MG CAPSULE PO SCH ×2 (09:13→21:12)
[2017-03-09] MEDS: CALCIUM POLYCARBOPHIL 625 MG TABLET PO SCH (09:13)
[2017-03-09] MEDS: VITAMIN B COMPLEX + C TABLET PO SCH ×2 (09:13→21:12)
[2017-03-09] MEDS: MIDODRINE 5 MG TABLET PO SCH ×3 (09:13→21:14)
[2017-03-09] MEDS: FLUDROCORTISONE 0.1 MG TABLET PO SCH (09:14)
[2017-03-09] MEDS: MAGNESIUM OXIDE 400 MG TABLET PO SCH (09:14)
[2017-03-09] MEDS: CEFTRIAXONE 1 G in NS 100 ML IV SCH (09:14)
[2017-03-09] MEDS: INSULIN ASPART 100unit/ml INJECTION SQ SCH ×3 (09:15→18:00)
--- NOTE | 2017-03-09 09:55 | Progress Note ---
Subjective: F/U: Sepsis secondary to UTI, UTI with E coli Improving, but feels stiff/sore this am from the uncomfortable bed. No f/c; not feeling as toxic and debilitated as at admission. Still very weak overall- working with therapy, knows his strength and stability needs to improve. Eating well without nausea or ab pain. Denies mouth pain or soreness. Bowels moving better. Breathing stable-not having SOA, cough, or congestion. No chest pressure , pain, or palpitations. Objective Vital signs: Temperature 96.3 F L 03/09/17 07:58 Pulse Rate 80 03/09/17 07:58 Respiratory Rate 16 03/09/17 07:58 Blood Pressure 150/82 H 03/09/17 07:58 Pulse Oximetry 96 03/09/17 07:58 Oxygen Delivery Method Room Air Weight: 89.9 kg - Constitutional Present: no acute distress, well nourished, well developed, cooperative - Routine HEENT Exam Head: Present: normocephalic, atraumatic Eye: Present: EOMI, PERRL. Absent: conjunctival icterus ENT: Present: mucous membranes moist (No thrush ) - Routine Respiratory Exam Present: CTA bilaterally. Absent: accessory muscle use, respiratory distress, rhonchi, wheezes, crackles - Routine Cardiovascular Exam Present: RRR, murmur - Routine Abdominal Exam Present: soft, normoactive bowel sounds, non distended, non tender. Absent: guarding - Routine Extremities Exam Present: no edema, pulses intact. Absent: cyanosis, clubbing - Routine Musculoskeletal Exam Musculoskeletal: Present: no clubbing or cyanosis, no erythema - Routine Skin Exam Present: intact, dry, warm. Absent: mottling - Routine Neurological Exam Present: alert, oriented X3, CN II-XII intact, vision grossly intact, hearing grossly intact - Routine Psychiatric Exam Present: normal affect, cooperative, good insight, good judgment Results - Labs CBC & Chem 7: 03/09/17 04:23 03/09/17 04:23 Assessment and Plan (1) Sepsis secondary to UTI Current visit: Yes Status: Resolved (2) Urinary tract infection Problem details: E coli Current visit: Yes Status: Acute 03/07/17 05:00 since he only had one dose and not clear if this really is resistance or not long enough time to resolve issue, will start rocephin IV Q24, cultures pending. symptomatic management (3) Leukocytosis Current visit: Yes Status: Resolved (4) Urinary retention Current visit: Yes Status: Acute 03/07/17 04:59 might need to straight cath, outpt urology appt. start flomax, BVI prn, (5) Constipation Current visit: Yes Status: Chronic (6) Parkinson disease, symptomatic Current visit: Yes Status: Chronic 03/07/17 05:02 continue home Sinemet, consider PT.OT, (7) CAD (coronary artery disease) Current visit: Yes Status: Chronic (8) HTN (hypertension) Current visit: Yes Status: Chronic (9) Type II diabetes mellitus Current visit: Yes Status: Chronic (10) Hypothyroidism Current visit: Yes Status: Chronic (11) Stage III chronic kidney disease Current visit: Yes Status: Chronic (12) Osteoarthritis Current visit: Yes Status: Chronic (13) Gait instability Current visit: Yes Status: Chronic (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 Trial of removing York - will do post void bladder scans to check for retention. Nursing to encourage void and scan if pt not voiding. Previously scheduled apt with Dr Cai on MondayMarch 13 - definitely needs to keep. Continue with bowel motivation - stools doing well with current medications. Encourage continued PT/OT to help increase strength and functional status. Functional status decreased secondary to his acute illness affecting his Parkinson's. Discussed about Skilled care post discharge-pt knows this would be helpful, but not sure if wants skilled over the March 14 Holiday. Recheck CBC in am due to resolving sepsis. Check BMP in am secondary to medication use. Case discussed with nursing and CM. Time spent with patient care greater than 25 minutes. Care plan discussed at length with patient. Sepsis Assessment - Evaluation Sepsis screening result: No Definite Risk Hospital Course Summary Disclaimer: The visit summary below is not to be considered part of the above Progress Note. Hospital Course: 03/07 Patient admitted overnight by telehospitalist secondary to UTI with f/c, temperature elevation, and leukocytosis. Rocephin started for urinary coverage and IVF of NS initiated at 100cc/hr for volume support. Patient is meeting sepsis criteria. Will place change admission status to inpatient admission as with sepsis marker positive would anticipate greater than 2 midnights of care needed. Continue Rocephin for urinary coverage. Continue IVF of NS, but decrease rate to 75 cc/hr. York placed due to urinary retention-start bladder retraining. PT/OT to maximize functional status due to his Parkinson's and acute debility from current illness. Work on bowel motivation. SCD for DVT prevention. Recheck CBC in am due to sepsis. Check BMP in am due to IVF use and medication. Check a1c due to elevated sugars; will consult with Dr Moore at family request. Full code. Care to return to Dr Sharpe at time of discharge from [facility] [place]. 03/08/17 Continue with Rocephin for urinary coverage-patient responding clinically. E coli growing - check C/S. Will d/c IVF as BP stable and taking oral well. D/C Tele as in NSR and without active cardiac complaints. Continue with bowel motivation. PT/OT to see pt to help increase strength and functional status. Consult placed to Dr Moore for evaluation of his diabetes. Recheck CBC in am due to resolving sepsis. Check BMP in am secondary to medication use. 03/09/17 Clinically improving. WBC normalized. No f/c. Continue with Rocephin for urinary coverage (Day 3) - C/S showing sensitivity to Rocephin and Augmentin. Trial of removing York - will do post void bladder scans to check for retention. Nursing to encourage void and scan if pt not voiding. Previously scheduled apt with Dr Cai on MondayMarch 13 - definitely needs to keep. Continue with bowel motivation - stools doing well with current medications. Encourage continued PT/OT to help increase strength and functional status. Functional status decreased secondary to his acute illness affecting his Parkinson's. Discussed about Skilled care post discharge-pt knows this would be helpful, but not sure if wants skilled over the March 14 Holiday. Recheck CBC in am due to resolving sepsis. Check BMP in am secondary to medication use.
[2017-03-09] MEDS: TAMSULOSIN 0.4 MG CAPSULE PO SCH (21:12)
[2017-03-09] MEDS: INSULIN GLARGINE 100unit/ml INJECTION SQ SCH (21:13)
[2017-03-09] MEDS: ATORVASTATIN 40 MG TABLET PO SCH (21:15)
[2017-03-09 23:27] VITALS: RESP 18; O2SAT 95
[2017-03-10] MEDS: OMEPRAZOLE 20 MG CAPSULE PO SCH (06:34)
[2017-03-10] MEDS: LEVOTHYROXINE 50 MCG TABLET PO SCH (06:34)
--- NOTE | 2017-03-10 07:53 | Endocrinology Progress Note ---
Progress Note-A&P (1) Hypothyroidism Status: Chronic Assessment and plan: Clinically and chemically euthyroid. Current Visit: Yes (2) Type II diabetes mellitus Status: Chronic Assessment and plan: Will need to taper bedtime basal insulin another 10%. Reduce Lantus (Tresiba at home) to 28 units HS. Current Visit: Yes - Time Spent With Patient Total time spent is greater than 50% in coordination of care (as documented) at patient's floor/unit and/or counseling patient: less than 15 minutes Subjective Principal diagnosis: Diabetes mellitus type 2 with hyperglycemia Interval history: Had hypoglycemia again early this morning. Exam Vital signs: Temperature 97.7 F 03/09/17 23:26 Pulse Rate 88 03/09/17 23:26 Respiratory Rate 18 03/09/17 23:26 Blood Pressure 169/78 H 03/09/17 23:26 Pulse Oximetry 95 03/09/17 23:26 Oxygen Delivery Method Room Air - Constitutional no acute distress, well nourished, well developed - Routine HEENT Exam Head: Present: normocephalic, atraumatic - Routine Neck Exam Absent: thyromegaly - Routine Respiratory Exam Absent: rales - Routine Cardiovascular Exam Present: RRR - Routine Abdominal Exam Present: normoactive bowel sounds - Routine Neurological Exam Present: alert, oriented X3 - Routine Psychiatric Exam Present: normal affect, normal thought process - Additional findings Additional findings: Laboratory Tests 03/09/17 03/09/17 03/09/17 11:20 12:25 16:53 Glucometer 144 110 101 03/09/17 03/10/17 03/10/17 20:42 04:48 05:08 Glucometer 201 43 108 - Urinary Catheter Management Straight Cath placed during this visit: yes, but has since been removed by the nurse Insertion date: 03/07/17 Insertion time: 02:05 Removal date: 03/09/17 Removal time: 11:08 Coude Cath placed during this visit: yes Urethral indwelling: No Insertion date: 03/07/17 Insertion time: 10:15
[2017-03-10 08:16] VITALS: BP 140/74; PULSE 81; TEMP 96.8
[2017-03-10] MEDS: CEFTRIAXONE 1 G in NS 100 ML IV SCH (09:19)
[2017-03-10] MEDS: DULOXETINE 60 MG CAPSULE PO SCH (09:20)
[2017-03-10] MEDS: CALCIUM POLYCARBOPHIL 625 MG TABLET PO SCH (09:20)
[2017-03-10] MEDS: LINACLOTIDE 145 MCG CAPSULE PO SCH (09:20)
[2017-03-10] MEDS: VITAMIN B COMPLEX + C TABLET PO SCH (09:20)
[2017-03-10] MEDS: CALCIUM 600 + VIT D 400 TABLET PO SCH (09:20)
[2017-03-10] MEDS: MIDODRINE 5 MG TABLET PO SCH (09:20)
[2017-03-10] MEDS: GABAPENTIN 100 MG CAPSULE PO SCH (09:21)
[2017-03-10] MEDS: CYANOCOBALAMIN (B-12) 500mcg TABLET PO SCH (09:21)
[2017-03-10] MEDS: ASCORBIC ACID 500 MG TABLET PO SCH (09:21)
[2017-03-10] MEDS: MAGNESIUM OXIDE 400 MG TABLET PO SCH (09:21)
[2017-03-10] MEDS: FLUDROCORTISONE 0.1 MG TABLET PO SCH (09:21)
[2017-03-10] MEDS: ASPIRIN *EC* 81 MG TABLET PO SCH (09:21)
[2017-03-10] MEDS: SENNA + DOCUSATE TABLET PO SCH (09:21)
[2017-03-10] MEDS: SALINE FLUSH 10ml SYRINGE IVF PRN (09:23)
[2017-03-10] MEDS: POLYETHYL GLYCOL 3350 17gm PACKET PO SCH (09:23)
[2017-03-10] MEDS: INSULIN ASPART 100unit/ml INJECTION SQ SCH ×2 (09:55→12:58)
--- NOTE | 2017-03-10 10:07 | Progress Note ---
Subjective: F/U: Sepsis secondary to UTI, UTI with E coli Doing well this morning. York removed yesterday-urinating well. Post void residuals were zero. No urinary pain or discomfort. Did have episode of urinary incontinence overnight. No f/c. Eating well without ab pain, nausea or stomatitis. Bowels moving. Breathing stable. No chest pain. Tolerating therapy. Overall feels significantly improved. Objective Vital signs: Temperature 96.8 F 03/10/17 08:00 Pulse Rate 81 03/10/17 08:00 Respiratory Rate 18 03/10/17 08:00 Blood Pressure 140/74 H 03/10/17 08:00 Pulse Oximetry 95 03/10/17 08:00 Oxygen Delivery Method Room Air Weight: 88.9 kg - Constitutional Present: no acute distress, well nourished, well developed, cooperative - Routine HEENT Exam Head: Present: normocephalic, atraumatic Eye: Present: EOMI, PERRL ENT: Present: mucous membranes moist, nares patent - Routine Respiratory Exam Present: CTA bilaterally. Absent: respiratory distress, wheezes, crackles - Routine Cardiovascular Exam Present: RRR, no murmur - Routine Abdominal Exam Present: soft, normoactive bowel sounds, non distended, non tender - Routine Extremities Exam Present: edema (Trace lower ext), pulses intact. Absent: cyanosis, clubbing - Routine Musculoskeletal Exam Musculoskeletal: Present: no clubbing or cyanosis, no tenderness, no erythema, moving extremities well - Routine Skin Exam Present: intact, warm. Absent: mottling - Routine Neurological Exam Present: alert, oriented X3, CN II-XII intact, motor deficit, vision grossly intact, hearing grossly intact - Routine Psychiatric Exam Present: normal affect, normal thought process, cooperative, good insight, good judgment Results - Labs CBC & Chem 7: 03/10/17 04:59 03/10/17 04:59 Assessment and Plan (1) Sepsis secondary to UTI Current visit: Yes Status: Resolved (2) Urinary tract infection Problem details: E coli Current visit: Yes Status: Acute 03/07/17 05:00 since he only had one dose and not clear if this really is resistance or not long enough time to resolve issue, will start rocephin IV Q24, cultures pending. symptomatic management (3) Leukocytosis Current visit: Yes Status: Resolved (4) Urinary retention Current visit: Yes Status: Resolved 03/07/17 04:59 might need to straight cath, outpt urology appt. start flomax, BVI prn, (5) Constipation Current visit: Yes Status: Chronic (6) Parkinson disease, symptomatic Current visit: Yes Status: Chronic 03/07/17 05:02 continue home Sinemet, consider PT.OT, (7) CAD (coronary artery disease) Current visit: Yes Status: Chronic (8) HTN (hypertension) Current visit: Yes Status: Chronic (9) Type II diabetes mellitus Current visit: Yes Status: Chronic (10) Hypothyroidism Current visit: Yes Status: Chronic (11) Stage III chronic kidney disease Current visit: Yes Status: Chronic (12) Osteoarthritis Current visit: Yes Status: Chronic (13) Gait instability Current visit: Yes Status: Chronic (14) Bladder neck contracture Current visit: Yes Status: Chronic (15) Overweight (BMI 25.0-29.9) Current visit: Yes Status: Chronic DVT Prophylaxis: SCD's Resuscitation Status: Full Code Assessment and Plan: WBC normal. Lab stable. Urinating well since York removed. Day 4 of Rocephin - will change to Augmentin for another 6 days to complete treatment course. Likely will need suppressive antibiotic after Augmentin completed. Has urological eval on 03/13 -- can discuss with urology at that time. Blood sugars doing well with Dr Moore's adjustments - Lantus decreased to 28 units. Will continue with lower dose Triseba at home. Arrangements made for skilled care at [facility] to improve strength and functionality prior to return to home independent living. Medically stable for discharge. Will D/C to skilled. See orders for detail. Case discussed with nursing and CM. Time spent with patient care and discharge greater than 35 minutes. Sepsis Assessment - Evaluation Sepsis screening result: No Definite Risk Hospital Course Summary Disclaimer: The visit summary below is not to be considered part of the above Progress Note. Hospital Course: 03/07 Patient admitted overnight by telehospitalist secondary to UTI with f/c, temperature elevation, and leukocytosis. Rocephin started for urinary coverage and IVF of NS initiated at 100cc/hr for volume support. Patient is meeting sepsis criteria. Will place change admission status to inpatient admission as with sepsis marker positive would anticipate greater than 2 midnights of care needed. Continue Rocephin for urinary coverage. Continue IVF of NS, but decrease rate to 75 cc/hr. York placed due to urinary retention-start bladder retraining. PT/OT to maximize functional status due to his Parkinson's and acute debility from current illness. Work on bowel motivation. SCD for DVT prevention. Recheck CBC in am due to sepsis. Check BMP in am due to IVF use and medication. Check a1c due to elevated sugars; will consult with Dr Moore at family request. Full code. Care to return to Dr Sharpe [place] [facility] [place] Continue with Rocephin for urinary coverage-patient responding clinically. E coli growing - check C/S. Will d/c IVF as BP stable and taking oral well. D/C Tele as in NSR and without active cardiac complaints. Continue with bowel motivation. PT/OT to see pt to help increase strength and functional status. Consult placed to Dr Moore for evaluation of his diabetes. Recheck CBC in am due to resolving sepsis. Check BMP in am secondary to medication use. 03/09/17 Clinically improving. WBC normalized. No f/c. Continue with Rocephin for urinary coverage (Day 3) - C/S showing sensitivity to Rocephin and Augmentin. Trial of removing York - will do post void bladder scans to check for retention. Nursing to encourage void and scan if pt not voiding. Previously scheduled apt with Dr Cai on MondayMarch 13 - definitely needs to keep. Continue with bowel motivation - stools doing well with current medications. Encourage continued PT/OT to help increase strength and functional status. Functional status decreased secondary to his acute illness affecting his Parkinson's. Discussed about Skilled care post discharge-pt knows this would be helpful, but not sure if wants skilled over the March 14 Holiday. Recheck CBC in am due to resolving sepsis. Check BMP in am secondary to medication use. 03/10/17 WBC normal. Lab stable. Urinating well since York removed. Day 4 of Rocephin - will change to Augmentin for another 6 days to complete treatment course. Likely will need suppressive antibiotic after Augmentin completed. Has urological eval on 03/13 -- can discuss with urology at that time. Blood sugars doing well with Dr Moore's adjustments - Lantus decreased to 28 units. Will continue with lower dose Triseba at home. Arrangements made for skilled care at [facility] to improve strength and functionality prior to return to home independent living. Medically stable for discharge. Will D/C to skilled. See orders for details.
--- NOTE | 2017-03-10 10:19 | Extended Care Facility Orders ---
Admission Orders Admit to:: [facility] Allergies/Adverse Reactions: Allergies primidone Allergy (Unknown, Verified 03/07/17 01:42) per H&P sulfamethoxazole Allergy (Unknown, Verified 03/07/17 01:42) CRITICALLY HIGH POTASSIUM topiramate Allergy (Unknown, Verified 03/07/17 01:42) per H&P trimethoprim Allergy (Unknown, Verified 03/07/17 01:42) CRITICALLY HIGH POTASSIUM Admitting Diagnosis: UTI with E coli, urinary retention; sepsis syndrome-resolved Admitting Physician: Sameer Campuzano MD Attending Physician: Dr Sharpe Code Status: Full Code Anticiapted Length of Stay: 30 days or less Rehab Potential: good Rehab Prognosis: good Diet: 03/07/17 Dinner Consistent Carbohydrate Diet [DIET] Calorie Level: 2000 Fluid Consistency: REGLIQU No concentrated sweets Wound/Incision Care: N/A May use Facility Protocol or Standing Orders: Yes May have flu vaccine: Yes Evaluations/Treatment: PT (Parkinson's, gait instability, gen debility secondary to acute illness. ), OT (Parkinson's, gait instability. Gen debility. ) [facility] Certification: I certify that SNF services are required to be given on an Inpatient basis because of the patients need for assisted care on a continuing basis for the condition(s) for which he/she received inpatient hospital services prior to his/her transfer to the SNF. SNF inpatient care is necessary for the following reasons Indication for [facility]: Diabetic Assessment, Teach Diabetes Mellitus Management, Other (Skilled PT/OT to maximize functional status. ) - Additional Information Resident is Aware of Diagnosis: Yes Additional Orders: F/U with Dr Sharpe in 1 week. Pt has apt with Dr Cai for urological evalutation on 03/13 - needs to keep. Pt does follow with Dr Moore for diabetic care. Walker for assistance. Accuchecks fasting and 2 hours after meals.
--- NOTE | 2017-03-10 10:25 | Discharge Summary ---
Discharge Information Date of admission: 03/07/17 16:09 Anticipated date of discharge: 03/10/17 Attending Physician: Sameer Campuzano MD Primary care physician: Sherif Sharpe MD Consults: 03/07/17 17:35 Dr [Physician Consult] [CONS] Routine Consulting Provider: Willie Moore Reason For Exam: Type II DM, hyperglycemia Ordering Provider has Notified Last Greaser: No Comment: may see am of 03/0803/10/17 09:52 Doctor [Physician Consult] [CONS] Routine Consulting Provider: Angie Singer Reason For Exam: continued care Ordering Provider has Notified Last Greaser: Yes - Discharge Diagnosis (1) Sepsis secondary to UTI Status: Resolved (2) Urinary tract infection Qualifiers: Urinary tract infection type: acute pyelonephritis Qualified Code(s): N10 - Acute pyelonephritis Problem Details: E coli Status: Acute (3) Leukocytosis Qualifiers: Leukocytosis type: unspecified Qualified Code(s): D72.829 - Elevated white blood cell count, unspecified Status: Resolved (4) Urinary retention Status: Resolved (5) Constipation Qualifiers: Constipation type: slow transit constipation Qualified Code(s): K59.01 - Slow transit constipation Status: Chronic (6) Parkinson disease, symptomatic Status: Chronic (7) CAD (coronary artery disease) Qualifiers: Coronary Disease-Associated Artery/Lesion type: [place] artery [place] vs. transplanted heart: [place] heart Associated angina: without angina Qualified Code(s): I25.10 - Atherosclerotic heart disease of [place] coronary artery without angina pectoris Status: Chronic (8) HTN (hypertension) Qualifiers: Hypertension type: essential hypertension Qualified Code(s): I10 - Essential (primary) hypertension Status: Chronic (9) Type II diabetes mellitus Qualifiers: Diabetes mellitus complication status: with neurologic complications Diabetes mellitus complication detail: with polyneuropathy Diabetes mellitus prison insulin use: with prison use Qualified Code(s): E11.42 - Type 2 diabetes mellitus with diabetic polyneuropathy; 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 Status: Chronic (10) Hypothyroidism Qualifiers: Hypothyroidism type: acquired Qualified Code(s): E03.9 - Hypothyroidism, unspecified Status: Chronic (11) Stage III chronic kidney disease Status: Chronic (12) Osteoarthritis Qualifiers: Osteoarthritis location: multiple joints Osteoarthritis type: primary Qualified Code(s): M15.0 - Primary generalized (osteo)arthritis Status: Chronic (13) Gait instability Status: Chronic (14) Bladder neck contracture Status: Chronic (15) Overweight (BMI 25.0-29.9) Status: Chronic - Laboratory Labs: 03/10/17 04:59 03/10/17 04:59 - Microbiology Microbiology 03/07/17 01:22 Peripheral/Iv Start Blood Culture - Preliminary No Growth After 3 Days 03/07/17 01:32 Peripheral/Iv Start Blood Culture - Preliminary No Growth After 3 Days 03/07/17 02:38 Urine, Cath Straight Urine Culture - Final Escherichia coli History of Present Illness HPI: 76 yo wiht DM, CAD, and progressive Parkinsons developed abdominal discomfort and fevers 2 days ago. He went to his PCP, Dr. Sharpe and was noted to have a UTI, he was given IM Rocephin and macrobid PO. He then went home but started having worsening fevers this afternoon of 101 and thus called 911 for EMS to bring him to the ER. He reports chronic problems with urinary retention and has had to straight cath himself in the past, has appt. with urology in the near future. For complete details of the H&P, refer to that document. Objective Vital signs: Temperature 96.8 F 03/10/17 08:00 Pulse Rate 81 03/10/17 08:00 Respiratory Rate 18 03/10/17 08:00 Blood Pressure 140/74 H 03/10/17 08:00 Pulse Oximetry 95 03/10/17 08:00 Oxygen Delivery Method Room Air Weight: 88.9 kg Hospital Course This is a general summary of the patient's hospital course. For more details refer to the complete medical record. Hospital course: 03/07 Patient admitted overnight by telehospitalist secondary to UTI with f/c, temperature elevation, and leukocytosis. Rocephin started for urinary coverage and IVF of NS initiated at 100cc/hr for volume support. Patient is meeting sepsis criteria. Will place change admission status to inpatient admission as with sepsis marker positive would anticipate greater than 2 midnights of care needed. Continue Rocephin for urinary coverage. Continue IVF of NS, but decrease rate to 75 cc/hr. York placed due to urinary retention-start bladder retraining. PT/OT to maximize functional status due to his Parkinson's and acute debility from current illness. Work on bowel motivation. SCD for DVT prevention. Recheck CBC in am due to sepsis. Check BMP in am due to IVF use and medication. Check a1c due to elevated sugars; will consult with Dr Moore at family request. Full code. Care to return to Dr Sharpe at time of discharge from [facility] [place]. 03/08/17 Continue with Rocephin for urinary coverage-patient responding clinically. E coli growing - check C/S. Will d/c IVF as BP stable and taking oral well. D/C Tele as in NSR and without active cardiac complaints. Continue with bowel motivation. PT/OT to see pt to help increase strength and functional status. Consult placed to Dr Moore for evaluation of his diabetes. Recheck CBC in am due to resolving sepsis. Check BMP in am secondary to medication use. 03/09/17 Clinically improving. WBC normalized. No f/c. Continue with Rocephin for urinary coverage (Day 3) - C/S showing sensitivity to Rocephin and Augmentin. Trial of removing York - will do post void bladder scans to check for retention. Nursing to encourage void and scan if pt not voiding. Previously scheduled apt with Dr Cai on MondayMarch 13 - definitely needs to keep. Continue with bowel motivation - stools doing well with current medications. Encourage continued PT/OT to help increase strength and functional status. Functional status decreased secondary to his acute illness affecting his Parkinson's. Discussed about Skilled care post discharge-pt knows this would be helpful, but not sure if wants skilled over the March 14 Holiday. Recheck CBC in am due to resolving sepsis. Check BMP in am secondary to medication use. 03/10/17 WBC normal. Lab stable. Urinating well since York removed. Day 4 of Rocephin - will change to Augmentin for another 6 days to complete treatment course. Likely will need suppressive antibiotic after Augmentin completed. Has urological eval on 03/13 -- can discuss with urology at that time. Blood sugars doing well with Dr Moore's adjustments - Lantus decreased to 28 units. Will continue with lower dose Triseba at home. Arrangements made for skilled care at [facility] to improve strength and functionality prior to return to home independent living. Medically stable for discharge. Will D/C to skilled. See orders for details. Time spent with patient: Greater than 35 minutes DVT Prophylaxis: ROBERTO Corrales Discharge Plan - Med Rec/Dispo Referrals/Follow Up: Sherif Sharpe MD [Family Provider] - 1 Week (F/U for hospitalization and review skilled progress. ) Jose Cai MD [Physician] - 03/13/17 (Has apt scheduled on 03/13/17 for urological evaluation. ) Willie Moore MD [Physician] - (As scheduled for diabetic care. ) Stiven Instructions: Urinary Tract Infection in Men (GEN) Prescriptions: New Milk of Magnesia [Mom] 30 ml PO DAILY PRN udc PRN Reason: Constipation Senna + Docusate [Senna Plus Tablet] 1 tab PO BIDWM tablet Sodium Chloride 5% Eye Drops [Liliana-128] 1 drop EACH EYE PRN PRN bottle PRN Reason: Dry Eyes Tamsulosin [Flomax] 0.4 mg PO HS capsule Amoxicillin/Potassium Clav [Augmentin 875-125 Tablet] 1 each PO BIDWM #12 tablet Coenzyme Q-10 [Co Q-10] 100 mg PO Q7D capsule PEG 3350 17gm PACKET [Miralax] 17 gm PO BIDWM packet Continue Insulin Lispro [HumaLOG] 8 unit SQ WS #0 Carbidopa/Levodopa [Carbidopa-Levodopa 25-100 Tab] 1.5 tab PO QID/E #0 Levothyroxine Sodium 100 mcg PO Medina@ACB #0 Midodrine HCl 10 mg PO TID #0 Omeprazole 20 mg PO ACB #0 Insulin Lispro [HumaLOG] 9 unit SQ WB #0 Docusate Sodium [Colace] 100 cap PO BID PRN #0 PRN Reason: CONSTIPATION Melatonin 5 - 10 mg PO HS PRN #0 PRN Reason: INSOMNIA Gabapentin 100 mg PO BID #0 Clobetasol 0.05% Cream [TEMOVATE Cream] 1 applic TOP DAILY PRN PRN Reason: Prn Orders Magnesium Oxide [Magnesium] 500 mg PO HS Fleet Phospho-Soda Enema [Fleet Enema] 1 enema RECTALLY DAILY PRN PRN Reason: Constipation Linaclotide [Linzess] 145 mcg PO DAILY Cyanocobalamin (Vitamin B-12) [Vitamin B12] 2,500 mcg PO SuMoThFr #0 Insulin Lispro [HumaLOG] 7 unit SQ WL #0 Aspirin [Aspir 81] 81 mg PO DAILY #0 Atorvastatin Calcium 40 mg PO HS #0 Duloxetine HCl 60 mg PO DAILY #0 Fludrocortisone [Florinef] 0.1 mg PO DAILY #0 Levothyroxine Sodium 50 mcg PO MoTuWeThFrSa@ACB #0 Calcium Carbonate/Vitamin D3 [Calcium 600 + Vit D 400 Softgl] 2 cap PO BID # 0 Alpha Lipoic Acid 600 mg PO 3XW #0 Calcium Polycarbophil [Fibercon] 625 mg PO DAILY #0 Ubidecarenone [Coq-10] 100 mg PO 1 WEEK #0 Cranberry Fruit Extract [Cranberry] 4,500 mg PO DAILY #0 Ascorbic Acid 500 mg PO DAILY #0 Changed Insulin Degludec [Tresiba Flextouch U-200] 28 unit SQ HS #0 No Action Polyethylene Glycol 3350 [Miralax] 17 g PO DAILY PRN #0 PRN Reason: CONSTIPATION Vitamin B Complex [Balance B-50] 1 tab PO BID #0 Discharge Instructions/Outpatient Orders: Final Provider Discharge Instructions Location: Determined By Patient - Disposition 01 Discharged Home, Self-Care
[2017-03-10] MEDS ORDERED: INSULIN GLARGINE 100unit/ml INJECTION SQ SCH (22:00)
[2017-03-12] MEDS ORDERED: LEVOTHYROXINE 100 MCG TABLET PO SCH (06:30)
== END 2017-03-10 13:05 | DRG 872 ==
LOC: ED 01:08 → MED 01:08
PROVIDERS: ADMIT Internal Medicine; ATTEND Hospitalist